=== PATIENT | female | born 1955 | race Caucasian/White ===

== ENCOUNTER → 2019-11-26 12:00 | Outpatient (CLI) | payer OTHER, SELFPAY ==
--- NOTE | ~2019-11-26 | XR_ITS ---
XR thoracic spine 3V DATE: 11/26/2019 12:31 INDICATION: Thoracic back pain TECHNIQUE: AP, lateral, swimmer views COMPARISON: 09/10/2016 thoracic spine FINDINGS: Diffuse osteopenia. There is minimal levoscoliosis of the thoracic spine. There is chronic minimal anterior wedging of a number of thoracic vertebra including T6 and T8, stabl e. No interval fracture or bone destruction of the thoracic spine. The thoracic pedicles are intact. No paraspinal soft tissue thickening. There is mild degenerative spurring of the thoracic spine. IMPRESSION: No recent fracture Mild degenerative spurring Minimal levoscoliosis Osteopenia Reviewed, dictated and finalized at location A.
== END ==
PROVIDERS: PCP Family Medicine; Visit Provider Family Medicine
DX: Z00.00 Encounter for general adult medical examination without abnormal findings (principal); M54.6 Pain in thoracic spine; M77.8 Other enthesopathies, not elsewhere classified; M41.84 Other forms of scoliosis, thoracic region; M85.88 Other specified disorders of bone density and structure, other site
CPT/HCPCS: 72072

== ENCOUNTER → 2019-12-06 12:17 | Outpatient (CLI) | payer OTHER, SELFPAY ==
--- NOTE | ~2019-12-06 | MR_ITS ---
EXAMINATION: MR thoracic spine wo con DATE: 12/06/2019 12:56 INDICATION: Dorsalgia, unspecified. TECHNIQUE: Magnetic resonance imaging (MRI) of the thoracic spine was performed without intravenous c ontrast. Sagittal localizer T1-weighted FSE of the cervical spine was obtained. Thoracic spine sequen lana included sagittal T2-weighted FSE, sagittal T1-weighted FSE, sagittal STIR FSE, and axial T2-weig hted FSE. COMPARISON: Thoracic spine radiographs 11/26/2019, CT abdomen and pelvis 08/11/2013 FINDINGS: There is 3 degrees dextrocurvature of thoracic spine. There is mild chronic anterior wedgin g of T6 vertebral body. In T12 vertebral body, there is an 11 mm lesion of decreased T1 and T2-weight ed signal intensity, likely focal sparing of fatty marrow replacement. Intervertebral disc heights ar e normal. The discs do not extend beyond the endplate margins. There is multilevel mild to moderate f acet joint osteoarthritis. On the right, there is mild neural foraminal stenosis at T8-T9, T9-T10, T1 0-T11, and T11-T12. On the left, there is mild neural foraminal stenosis at T3-T4, T8 and T9, T9-T10. The spinal cord signal intensity is normal. IMPRESSION: 1. Mild thoracic spondylosis. Reviewed, dictated and finalized at location A.
== END ==
PROVIDERS: PCP Family Medicine; Visit Provider Family Medicine
DX: M54.9 Dorsalgia, unspecified (principal); M47.24 Other spondylosis with radiculopathy, thoracic region
CPT/HCPCS: 72146

== ENCOUNTER 2020-04-11 10:40 | Outpatient (CLI) | payer OTHER, SELFPAY ==
--- NOTE | ~2020-04-11 | MM_ITS ---
EXAMINATION: MM screening leon BI w elsi HISTORY: Screening mammogram TECHNIQUE: Craniocaudal and mediolateral oblique 3-D tomosynthesis images were obtained and synthetic 2-D images were generated. CAD analysis was submitted and interpreted. COMPARISON: 02/26/2019 bilateral diagnostic digital mammogram 11/04/2017 diagnostic left digital mammogram 10/28/2017, 10/22/2016, 07/04/2015 bilateral digital screening mammogram examinations BREAST PARENCHYMAL COMPOSITION: There are scattered areas of fibroglandular density. FINDINGS: There is a biopsy marker on each side, associated with circumscribed masses, reportedly mayo ign. Occasional bilateral benign calcifications. There is no evidence of suspicious mass, calcificati on, or architectural distortion to suggest malignancy in either breast. There has been no suspicious interval change. IMPRESSION: 1. No mammographic evidence of malignancy. 2. Recommend routine screening mammography in one year. BI-RADS Category 2: Benign finding(s). Reviewed, dictated and finalized at location A. ENGINEER
== END 2020-04-11 10:41 | disposition home or self-care (01) ==
PROVIDERS: PCP Family Medicine; Visit Provider Family Medicine
DX: Z12.31 Encounter for screening mammogram for malignant neoplasm of breast (principal)
CPT/HCPCS: 77063; 77067

== ENCOUNTER → 2021-06-04 11:35 | Outpatient (CLI) | payer OTHER, SELFPAY ==
--- NOTE | ~2021-06-04 | XR_ITS ---
EXAMINATION: XR lumbar spine min 4V DATE: 06/04/2021 12:07 INDICATION: Low back pain. TECHNIQUE: 5 views of lumbar spine were obtained. COMPARISON: Thoracic spine radiographs 11/26/2019 FINDINGS: Bone alignment is normal. There is a compression fracture of T12 with 1/5 loss of height. T here is mildly decreased disc height at L3-L4. There are endplate osteophytes at all levels. There is multilevel facet joint osteoarthritis, severe in lower lumbar spine. IMPRESSION: 1. T12 compression fracture, most likely chronic, but new from 09/10/2016. 2. Mild lumbar spondylosis. Reviewed, dictated and finalized at location A. ITTEE MEMBER
== END ==
PROVIDERS: Visit Provider Family Medicine
DX: M48.54XA Collapsed vertebra, not elsewhere classified, thoracic region, initial encounter for fracture (principal); M47.816 Spondylosis without myelopathy or radiculopathy, lumbar region
CPT/HCPCS: 72110

== ENCOUNTER 2021-08-15 08:59 | Outpatient (CLI) | payer MEDICARE, SELFPAY ==
--- NOTE | ~2021-08-15 | MM_ITS ---
EXAMINATION: MM screening leon BI w elsi HISTORY: Screening TECHNIQUE: Craniocaudal and mediolateral oblique 3-D tomosynthesis images were obtained and synthetic 2-D images were generated. CAD analysis was submitted and interpreted. COMPARISON: Comparison to multiple prior studies sequentially, with oldest reviewed study dated 10/22. BREAST PARENCHYMAL COMPOSITION: Breast composed of scattered areas of fibroglandular density FINDINGS: Benign appearing calcifications and stable bilateral breast masses. There is no evidence of suspicious mass, calcification, or architectural distortion to suggest malignancy in either breast. There has been no suspicious interval change. IMPRESSION: 1. No mammographic evidence of malignancy. 2. Recommend routine screening mammography in one year. BI-RADS Category 2: Benign finding(s). Reviewed, dictated and finalized at location A.
== END 2021-08-15 09:00 | disposition home or self-care (01) ==
LOC: ANHIMG 09:03
PROVIDERS: PCP Family Medicine; Visit Provider Family Medicine
DX: Z12.31 Encounter for screening mammogram for malignant neoplasm of breast (principal)
CPT/HCPCS: 77063; 77067

== ENCOUNTER → 2021-09-14 02:15 | Outpatient (CLI) | payer MEDICARE, SELFPAY ==
[2021-09-14 15:55] LABS: SARS-CoV-2 RNA PCR Positive
== END ==
PROVIDERS: PCP Family Medicine; Visit Provider Family Medicine
DX: U07.1 COVID-19 (principal); R68.89 Other general symptoms and signs
CPT/HCPCS: C9803; U0003; U0005

== ENCOUNTER → 2021-10-01 14:28 | Outpatient (CLI) | payer MEDICARE, SELFPAY ==
--- NOTE | ~2021-10-01 | MR_ITS ---
EXAMINATION: MR brain/brain stem wo/w con DATE: 10/01/2021 15:06 INDICATION: Repeated falls. Unsteady gait. TECHNIQUE: Magnetic resonance imaging (MRI) of the brain and brainstem was performed without and with 15 mL MultiHance intravenous contrast. COMPARISON: None. FINDINGS: There is no intracranial hemorrhage, acute infarction, or abnormal intracranial mass lesion . There are scattered areas of nonspecific increased T2-weighted signal intensity in the cerebral whi te matter. There are old lacunar infarcts in the bilateral basal ganglia. The ventricles are normal i n size. There is mild mucosal thickening in the paranasal sinuses. The orbits are normal. The mastoi d air cells are normal. IMPRESSION: 1. 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 2. Mild nonspecific cerebral white matter disease, which likely represents chronic small vessel ische philly disease. Reviewed, dictated and finalized at location A. IMPRESSION: 1. 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 2. Mild nonspecific cerebral white matter disease, which likely represents storm door maker samuel small vessel ischemic disease.
[2021-10-01 14:49] LABS: Estimated Glomerular Filt Rate > 60
== END ==
PROVIDERS: PCP Family Medicine; Visit Provider Family Medicine
DX: M06.00 Rheumatoid arthritis without rheumatoid factor, unspecified site (principal); R29.6 Repeated falls; R27.0 Ataxia, unspecified; Z86.73 Personal history of transient ischemic attack (TIA), and cerebral infarction without residual deficits; R90.82 White matter disease, unspecified
CPT/HCPCS: 70553; A9577

== ENCOUNTER 2021-11-02 06:34 | Outpatient (CLI) | payer MEDICARE, SELFPAY ==
--- NOTE | 2021-11-02 11:32 | WPDNEUROLOGY ---
Neurology EEG Report General Information Date of Study: 11/02/21 TEST eeg DIAGNOSIS falls CONDITION OF RECORDING awake,drowsy and sleep EEG NUMBER [id number] CLINICAL HISTORY patient reports she has been falling the last couple of months. Does not believe she loses consciousness but does have confusion afterwards. EEG DESCRIPTION Basic resting occipital frequency consists of low-voltage 8 to 9 hertz per 2nd alpha admixed with low-voltage 15 to 18 hertz per 2nd beta. Bilateral symmetrical sleep activity seen during sleep. Hyperventilation not done. Photic stimulation produced normal drive. Excessive amount of intermittent theta activity seen particularly during drowsiness. Non paroxysmal. Nonfocal. Nonlateralizing. IMPRESSION abnormal record due to the presence of excessive amount of theta activity during wakefulness. Clinical correlation recommended. This abnormality as per Se is not diagnostic of focal structural lesion or seizure disorder but could be suggestive of underlying organic or metabolic encephalopathy clinical correlation recommended
== END 2021-11-02 06:35 | disposition home or self-care (01) ==
LOC: ANHNEURO 06:36
PROVIDERS: PCP Family Medicine; Visit Provider Internal Medicine
DX: T14.90XA Injury, unspecified, initial encounter (principal); R94.01 Abnormal electroencephalogram [EEG]
CPT/HCPCS: 95816

== ENCOUNTER → 2021-11-05 08:28 | Outpatient (CLI) | payer MEDICARE, SELFPAY ==
--- NOTE | ~2021-11-05 | MR_ITS ---
EXAMINATION: MR cervical spine wo con, MR thoracic spine wo con DATE: 11/05/2021 09:13 INDICATION: Myelopathy. Neck and mid back pain. TECHNIQUE: 1. Magnetic resonance imaging (MRI) of the cervical spine was performed without intravenous contrast. Sequences included sagittal T2-weighted FSE, sagittal T2-weighted FS FSE, sagittal T1-weighted FSE, axial MERGE and axial T2-weighted FSE. 2. MRI of the thoracic spine was performed without intravenous contrast. Sagittal localizer T1-weight ed FSE of the cervicothoracic spine was obtained. Sequences included sagittal T2-weighted FSE, sagitt al T2-weighted FS FSE, sagittal T1-weighted FSE and axial T1-weighted FSE. COMPARISON: Thoracic spine MR dated 11/29/2019 FINDINGS: Bone alignment is normal. Vertebral body heights are normal. Bone marrow signal intensity is normal . Intervertebral disc heights are normal. Annular fissures at C4-C5 through C6-C7. Cord signal intens ity is normal. There is some hypertrophic of the posterior longitudinal ligament at the level of C2 a nd C3. Cervical soft tissues are unremarkable. The following disc levels are specifically discussed: C2-C3: The disc does not extend beyond the endplate margin. Small central endplate osteophyte superio rly at C3 along the thickened posterior longitudinal ligament. There is mild bilateral uncovertebral joint osteoarthritis. There is mild bilateral facet joint osteoarthritis. There is no neural foramina l stenosis. There is mild central canal stenosis. C3-C4: Disc is mildly bulging. Additional thickening of the posterior longitudinal ligament. There is mild left uncovertebral joint osteoarthritis. There is mild left and moderate right facet joint oste oarthritis. There is no neural foraminal stenosis. There is mild central canal stenosis. C4-C5: Disc is bulging. There is mild bilateral uncovertebral joint osteoarthritis. There is moderate left and severe right facet joint osteoarthritis. There is mild bilateral neural foraminal stenosis. There is mild central canal stenosis. C5-C6: Disc is bulging. There is mild bilateral uncovertebral joint osteoarthritis. There is severe b ilateral facet joint osteoarthritis. There is mild left neural foraminal stenosis. There is mild cent ral canal stenosis. C6-C7: Disc is bulging. There is mild bilateral uncovertebral joint osteoarthritis. There is mild rig ht and moderate left facet joint osteoarthritis. There is mild left neural foraminal stenosis. There is mild central canal stenosis. C7-T1: The disc does not extend beyond the endplate margin. There is mild left uncovertebral joint os teoarthritis. There is mild bilateral facet joint osteoarthritis. There is no neural foraminal stenos is. There is no central canal stenosis. Thoracic spine: Alignment is normal. There is marrow edema underlying the irregular and depressed superior endplate o f T12 consistent with relatively recent burst fracture with one third anterior to central vertebral b dustin height loss. There is 2 mm retropulsion at the central superior aspect of the posterior wall. Unc hanged chronic mild anterior wedging with normal marrow signal at T6. Remaining thoracic vertebral marlys dy heights and marrow signal are normal. Mild disc height loss from T3-T4 through T9-T10 relatively s paring T6-T7 and T7-T8. Multilevel thoracic facet osteoarthritis, mild to moderate severity at the up per thoracic spine and moderate to severe at the lower thoracic spine. This contributes to mild neura l foraminal stenosis on the right at T7-T8 through T11-T12 and on the left at T3-T4, T8-T9 and T9-T10 . There is mild central canal stenosis at T11-T12 is altered from the retropulsion of the T12 burst f racture and mild associated bulging disc. This in the more cephalad thoracic spine do not extend beyo nd the endplate margins. Additional mild central canal stenosis at T8-T9 and T9-T10 resulting from hy per
== END ==
PROVIDERS: PCP Family Medicine; Visit Provider Internal Medicine
DX: G95.9 Disease of spinal cord, unspecified (principal); M47.812 Spondylosis without myelopathy or radiculopathy, cervical region; M47.814 Spondylosis without myelopathy or radiculopathy, thoracic region; S22.081A Stable burst fracture of T11-T12 vertebra, initial encounter for closed fracture
CPT/HCPCS: 72141; 72146

== ENCOUNTER 2022-04-12 11:52 | Outpatient (CLI) | payer MEDICARE, SELFPAY ==
--- NOTE | ~2022-04-12 | DEXA_ITS ---
Bone Density Report Name: ELODIA WALLER Age: 66 Sex: Female Ethnicity: White Date of : 1955 Indication: postmenopausal; screening for osteoporosis; height loss; prior fracture; hysterectomy; rheumatoid arthritis; Referring Provider: DAVID HOBBS Study: Bone densitometry was performed. Exam Date: April 12, 2022 Accession number: [id number] Bone Density: Region BMD T-score Z-score Classification AP Spine(L1-L4) 1.084 0.3 2.1 Normal Femoral Neck (Left) 0.795 -0.5 1.1 Normal Total Hip (Left) 0.851 -0.7 0.5 Normal Femoral Neck (Right) 0.740 -1.0 0.6 Normal Total Hip (Right) 0.865 -0.6 0.6 Normal Total Hip Mean 0.858 -0.7 0.6 Normal World Health Organization criteria for BMD impression classify patients as: Normal (T-score at or above -1.0), Osteopenia (T-score between -1.0 and -2.5), or Osteoporosis (T-score at or below -2.5). 10-year Fracture Risk: FRAX not reported because: All T-scores for Spine Total, Hip Total, Femoral Neck at or above -1.0 Prior hip or vertebral fracture Clinical Information Provided by Patient: Have had a previous hip or vertebral fracture Has had a low trauma fracture Has rheumatoid arthritis Has used the following medications: Vitamin D, Calcium Has the following medical conditions: Hysterectomy Patient maximum height was 66 Menopause Age: 51 Drinks caffeinated beverages Onset of menses at age 15 Number of children 2 Impression: The patient has normal bone mass. The patient has risk factors, including: previous fracture. Discussion: INCREASED RISK OF FRACTURE DUE TO HISTORY OF FRACTURE. The patient's previous fracture puts the patient at high risk of a future fracture. In untreated patients, the risk of osteoporotic fracture increases approximately two-fold for each 1.0 SD decrease in T-score. Low bone density is not the only risk factor for fracture; also consider factors such as patient's age, frailty or poor health, risk of falling, risk of injury, previous osteoporotic fracture, family history of osteoporosis, cigarette smoking, low body weight, etc. Not everyone with a low trauma fracture has osteoporosis; osteomalacia and other metabolic bone disorders should also be considered. Patients who have osteoporosis should be evaluated for specific diseases and conditions (secondary causes) that may cause or contribute to bone loss and fracture risk. National Osteoporosis Foundation (NOF) recommends pharmacologic intervention for patients with a prior hip or vertebral fracture regardless of BMD T-score. The patient should follow a healthful lifestyle (good nutrition with adequate calcium and vitamin D, and appropriate weight-bearing exercise). Follow-Up: Consider a repeat BMD and Vertebral Fracture Assessment (VFA) exam in 2 years or sooner if medica
== END 2022-04-12 11:53 | disposition home or self-care (01) ==
LOC: ANHIMG 11:53
PROVIDERS: PCP Family Medicine; Visit Provider Physician Assistant
DX: Z78.0 Asymptomatic menopausal state (principal)
CPT/HCPCS: 77080

== ENCOUNTER 2022-12-16 14:59 | Outpatient (CLI) | payer MEDICARE, SELFPAY ==
--- NOTE | ~2022-12-16 | MM_ITS ---
EXAMINATION: MM screening [facility] BI w elsi HISTORY: Screening mammogram TECHNIQUE: Craniocaudal and mediolateral oblique 3-D tomosynthesis images were obtained and synthetic 2-D images were generated. CAD analysis was submitted and interpreted. COMPARISON: 08/15/2021, 04/11/2020, 02/26/2019, 11/04/2017, 10/28/2017 BREAST PARENCHYMAL COMPOSITION: There are scattered areas of fibroglandular density. FINDINGS: There are stable bilateral breast masses, considered benign given the lack of interval montalvo ge. No suspicious mass, calcification, or architectural distortion are identified in either breast to suggest malignancy. There has been no suspicious interval change. IMPRESSION: 1. No mammographic evidence of malignancy. 2. Recommend routine screening mammography in one year. BI-RADS Category 2: Benign finding(s). Reviewed, dictated and finalized at location A.
== END 2022-12-16 15:00 | disposition home or self-care (01) ==
LOC: ANHIMG 15:02
PROVIDERS: PCP Family Medicine; Visit Provider Family Medicine
DX: Z12.31 Encounter for screening mammogram for malignant neoplasm of breast (principal)
CPT/HCPCS: 77063; 77067

== ENCOUNTER 2024-06-17 14:08 | Outpatient (RCR) | payer MEDICARE, SELFPAY ==
--- NOTE | 2024-06-09 08:30 | PCPTNOTE ---
This treatment is being continued from visit number [id number] Please see documentation on both accounts to view progress. Completed interventions, outcomes, and problems have been marked as Inactive to facilitate the copying of the Care plan routine for recurring accounts.
--- NOTE | 2024-06-17 16:01 | OPREHPOC ---
Outpatient Therapy Plan of Care This is a Multidisciplinary Plan of Care that may contain components documented by all disciplines (PT, OT, and ST.) PT Problem 1 PT Problem #1 Knowledge Deficit PT Goal 1 Goal / Goal Update Hyde with HEP Target Visit 4 Progress Met PT Goal 2 Goal / Goal Update Improve LEFS score by 25% + for improved gross function Target Visit 8 Progress Met PT Problem 2 PT Problem #2 Impaired Strength PT Goal 1 Goal / Goal Update Improve left hip abduction strength to 4/5 to improve lateral stability with gait and transfers -Still showing weakness but progressing Target Visit 22 Progress Met PT Goal 2 Goal / Goal Update Improve left hip flexion strength to 4+/5 to improve foot clearance with gait and ADLs -Improvement noted Target Visit 10 Progress Met PT Problem 3 PT Problem #3 Impaired Range of Motion PT Goal 1 Goal / Goal Update Improve arron hip abduction to 40 degrees to reduce capsular restriction with gait and lateral movement- continued restriction noted. Having trouble with cross over Target Visit 22 Progress Met PT Problem 4 PT Problem #4 Impaired Gait PT Goal 1 Goal / Goal Update Patient will improve 2 minute walk test to 300' for improved gait speed and reduced fall risk Target Visit 10 Progress Met
--- NOTE | 2024-06-17 16:01 | PTOPDC ---
Assessment and note entered by Conrad Villarreal, PT Evaluation Information Assessment Status Discharge Diagnosis ORIF L hip ICD-10 Condition Codes (PT) Pain in left hip M25.552 Onset December 2023 Fracture and Surgery Subjective Information Patient reports progress with only some lateral hip pain remaining at this time. Overall she notes no increased pain anywhere near hip joint and all is on lateral hip. She has been doing a lot more walking and is feeling comfortable with her stride and pace. Will continue with HEP post discharge. Reported Pain Level Pain Score 2: Self Report Assessment PT Clinical Summary Patient met all goals for therapy and is suitable for discharge to [facility] at this time. Able to reflect and recall HEP with no concerns at this time. Plan of Care PT Services Indicated Yes
== END 2024-06-18 09:33 | disposition home or self-care (01) ==
LOC: ANHPT 14:08
PROVIDERS: PCP Family Medicine
DX: Z47.1 Aftercare following joint replacement surgery (principal); Z98.890 Other specified postprocedural states; Z87.81 Personal history of (healed) traumatic fracture; Z96.642 Presence of left artificial hip joint
CPT/HCPCS: 97110; 97116; 97530

== ENCOUNTER 2024-08-12 08:06 | Outpatient (CLI) | payer MEDICARE, SELFPAY ==
--- NOTE | ~2024-08-12 | DEXA_ITS ---
Bone Density Report Name: ELODIA WALLER Age: 68 Sex: Female Ethnicity: White Date of : 1955 Indication: postmenopausal; screening for osteoporosis; height loss; prior fracture; hysterectomy; rheumatoid arthritis; Referring Provider: EILEEN ZHOU Study: Bone densitometry was performed. Exam Date: August 12, 2024 Accession number: [id number] Bone Density: Region BMD T-score Z-score Classification AP Spine(L1-L4) 1.046 0.0 2.0 Normal Femoral Neck (Right) 0.730 -1.1 0.6 Osteopenia Total Hip (Right) 0.796 -1.2 0.2 Osteopenia World Health Organization criteria for BMD impression classify patients as: Normal (T-score at or above -1.0), Osteopenia (T-score between -1.0 and -2.5), or Osteoporosis (T-score at or below -2.5). 10-year Fracture Risk: FRAX not reported because: Prior hip or vertebral fracture Previous Exams: Region Exam Age BMD T-score BMD Change BMD Change Date g/cm2 vs Baseline vs Previous AP Spine (L1-L4) 08/12/2024 68 1.046 0.0 -0.199 (-16.0% -0.038 (-3.5%) 04/12/2022 66 1.084 0.3 -0.162 (-13.0% -0.162 (-13.0% 10/22/2016 61 1.245 1.8 Total Hip(Right) 08/12/2024 68 0.796 -1.2 -0.256 (-24.4% -0.069 (-8.0%) 04/12/2022 66 0.865 -0.6 -0.187 (-17.8% -0.187 (-17.8% 10/22/2016 61 1.052 0.9 *Denotes significance at 95% confidence level, LSC for AP Spine = 0.022 g/cm2, LSC for Total Hip = 0.027 g/cm2 # Denotes dissimilar scan types or analysis methods Clinical Information Provided by Patient: Have had a previous hip or vertebral fracture Has had a low trauma fracture Has rheumatoid arthritis Has used the following medications: Vitamin D, Calcium Has the following medical conditions: Hysterectomy Patient maximum height was 66 Menopause Age: 51 Does not regularly consume dairy products Onset of menses at age 15 Number of children 2 Impression: The patient has low bone mass, based on the Right Total Hip T-score. The patient has risk factors, including: previous fracture. No significant bone loss was observed. Discussion: INCREASED RISK OF FRACTURE DUE TO HISTORY OF FRACTURE. The patient's previous fracture puts the patient at high risk of a future fracture. In untreated patients, the risk of osteoporotic fracture increases approximately two-fold for each 1.0 SD decrease in T-score. Low bone density is not the only risk factor for fracture; also consider factors such as patient's age, frailty or poor health, risk of falling, risk of injury, previous osteoporotic fracture, family history of osteoporosis, cigarette smoking, low body weight, etc. Not everyone with a low trauma fracture has osteoporosis; osteomalacia and other metabolic bone disorders should also be considered. Patients who have osteoporosis should be evaluated for specific diseases and conditions (secondary causes) that may cause or contribute to bone loss and fracture risk. National Osteoporosis Foundation (NOF) recommends pharmacologic intervention for patients with a prior hip or vertebral fracture regardless of BMD T-score. The patient should follow a healthful lifestyle (good nutrition with adequate calcium and vitamin D, and appropriate weight-bearing exercise). Follow-Up: Consider a repeat BMD and Vertebral Fracture Assessment (VFA) exam in 2 years or sooner if medically necessary, to reassess this patient's status. Reported by: ARMAND on 08/12/2024 8:47:00 AM. Reviewed, dictated and finalized at location A. MARIIA
--- NOTE | ~2024-08-12 | MM_ITS ---
EXAMINATION: MM screening leon BI w elsi HISTORY: Screening TECHNIQUE: Craniocaudal and mediolateral oblique 3-D tomosynthesis images were obtained and synthetic 2-D images were generated. CAD analysis was submitted and interpreted. COMPARISON: Comparison to multiple prior studies sequentially, with oldest reviewed study dated 11/04. BREAST PARENCHYMAL COMPOSITION: Not dense: There are scattered areas of fibroglandular density. FINDINGS: There is a mass in the lower outer quadrant of the left breast, posterior third. The right breast is stable without evidence for malignancy. IMPRESSION: 1. Left breast mass, lower outer quadrant, posterior third, measuring approximately 1 cm. 2. Additional mammographic views and possible breast ultrasound are recommended. BI-RADS Category 0: Incomplete: Needs additional imaging evaluation. Reviewed, dictated and finalized at location A. IMPRESSION: 1. Left breast mass, lower outer quadrant, posterior third, measuring approxima tely 1 cm. 2. Additional mammographic views and possible breast ultrasound are recommended . BI-RADS Category 0: Incomplete: Needs additional imaging evaluation.
--- OUTSIDE RECORDS SUMMARY | 2024-08-12 08:14 | XMS_ITS | Encounter Summary ---
Author Organization [facility] Address [address] [place] [id number] Care Team Providers Care Prop Setter Name Role Phone Cooper Suazo MD Primary Care Provider [phone] Matias Betancur MD Unavailable Encounter Details Date Type Department Care Team (Late st Contact Info) Description 01/19/2024 Invoca Message Enc [facility] Orthopedic [facility] Sports Medicine - [place] [address] [employer], [facility] Provider apt Social History Tobacco Use Types Packs/Day Years Used Date Smoking Tobacco: Never Smokeless Tobacco: Never Alcohol Use Standard Drinks/Week Comments Never 0 (1 standard drink = 0.6 oz pur e alcohol) very rare [facility] Utilities Answer Date Recorded In the past 12 months has health system [employer], gas, oil, or water [employer] threatened to shut off services in your home? No 12/28/2023 Humiliation, Afraid, Rape, and Kick questionnair e Answer Date Recorded Within the last year, have y ou been afraid of your partner or ex-partner? No 12/28/2023 Within the last year, have y ou been humiliated or emotionally abused in other ways by your partner or ex-partner? No Within the last year, have y ou been kicked, hit, slapped, or otherwise physically hurt by your partner or ex-partner? No 12/28/2023 Within the last year, have y ou been raped or forced to have any kind of sexual activity by your partner or ex-partner? No 12/28/2023 Overall Financial Resource Strain (CARDIA) Answe r Date Recorded How hard is it for you to pa y for the very basics like food, housing, medical care, and heating? Not hard at all 12/28/2023 PHQ-2 Answer Date Recorded Patient Health Questionnaire-2 Score 0 12/22/2023 Hunger Vital Sign Answer Date Recorded Within the past 12 months, y ou worried that your food would run out before you got the money to buy more. Never true 12/28/19 24 Within the past 12 months, t he food you bought just didn't last and you didn't have money to get more. Never true 12/28/2023 PRAPARE - Transportation Answer Date Re corded In the past 12 months, has l ack of transportation kept you from medical appointments or from getting medications? No 12/10 In the past 12 months, has l ack of transportation kept you from meetings, work, or from getting things needed for daily living? No 12/28/2023 Housing Stability Vital Sign Answer Chong e Recorded In the last 12 months, was t here a time when you were not able to pay the mortgage or rent on time? No 12/28/2023 In the past 12 months, how m any times have you moved where you were living? 1 12/28/2023 At any time in the past 12 m [facility], were you homeless or living in a detention (including now)? No 12/28/2023 Comments No Sex and Gender Information Value Date Recorded Sex Assigned at Not on file Legal Sex Female 10:06 AM CDT Gender Identity Not on file Sexual Orientation Not on file documented as of this encounter Functional Status * Are you deaf or do you have serious difficulty hearing Answer Date of Assessment Author Status No 12/28/2023 12:50 AM SHANNONT Jalyn Marmolejo RN Active * Are you blind or do you have serious difficulty seeing, even when wearing glasses? Answer Date of Assessment Author Status No 12/28/2023 12:50 AM SHANNONT Jalyn Marmolejo RN Active * Do you have serious difficulty walking or climbing stairs? Answer Date of Assessment Author Status Yes 12/28/2023 12:50 AM Jalyn Vega RN Active * Do you have difficulty dressing or bathing? Answer Date of Assessment Author Status Yes 12/28/2023 12:50 AM CDT Jalyn Marmolejo RN Active * Because of a physical, mental, or emotional condition, do you have difficulty doing errands alone such as visiting a doctor's office or shopping? Answer Date of Assessment Author Status No 12/28/2023 12:50 AM CDT Jalyn Marmolejo RN Active documented as of this encounter Mental Status * Because of a physical, mental, or emotional condition, do you have serious difficulty concentrating, remembering, or making decisions? Answer Entry Date Author Status No 12/28/2023 12:50 AM CDT Jalyn Marmolejo RN Active documented in this encounter Plan of Treatment Upcoming Encounters Date Type Department Care Team (Late st Contact Info) Description 08/12/2024 12:30 PM [facility] [address] [place] [address] Herman Barajas MD [address] [place] [address] 08/12/2024 1:15 PM CDT [facility] [address] [place] [address] Herman Barajas MD [address] [place] [address] 08/24/2024 2:15 PM CDT Appointment [facility] [place] [address] Herman Barajas MD [address] [place] [address] 08/24/2024 3:15 PM CDT Appointment [place] [address] Herman Barajas MD [address] [place] [address] 11/16/2024 10:30 AM CDT Office Visit [facility], [place] [address] [place] [address] Dwayne Luis MD [facility]. [address] [place] [address] 12/14/2024 2:40 PM CDT Office Visit [facility] - [facility] [address] [facility], [address] [place] [id number] Herman Barajas MD [address] [place] [address] documented as of this encounter Goals Goal Patient Goal Type Associated Problems Recent Progress Patient-Stated? Author Family - family caregiver with be involved in care transitions and discharge planning Lifestyle No Orville Lares, RN documented as of this encounter Visit Diagnoses Not on filedocumented in this encounter Care Teams Prop Setter Relationship Specialty Start Date End Date Cooper Suazo MD PCP - General FAMILY PRACTICE 10/17/21 Matias Betancur MD [address] [place] [address] Surgeon NEUROLOGICAL SURGERY 06/20/22 documented as of this encounter
--- OUTSIDE RECORDS SUMMARY | 2024-08-12 08:14 | XMS_ITS | Encounter Summary ---
Author Organization [facility] Address [facility] [place] [address] Care Team Providers Care Bolt Sawyer Name Role Phone Cooper Suazo MD Primary Care Provider [phone]- [phone] Matias Betancur MD Unavailable [phone] Encounter Details Date Type Department Care Team (Late st Contact Info) Description 07/15/2022 Equivalent DATAt Message Enc [facility] Multispecialty Care - [facility] 3 [facility], [address] [place] [id number] Hilary Smith APRN 3 [facility] [address] [place] [address] medications Social History Tobacco Use Types Packs/Day Years Used Date Smoking Tobacco: Never Smokeless Tobacco: Never Alcohol Use Standard Drinks/Week Comments Not Currently 0 (1 standard drink = 0.6 oz pur e alcohol) very rare PHQ-2 Answer Date Recorded PHQ-2 Score - If the patient scores above 3, please move on to questions 3-9 0 03/28/2022 Comments No Sex and Gender Information Value Date Recorded Sex Assigned at Not on file Legal Sex Female 10:06 AM CDT Gender Identity Not on file Sexual Orientation Not on file COVID-19 Exposure Response Date Recorded In the last 10 days, have yo u been in contact with someone who was confirmed or suspected to have Coronavirus/COVID-19? 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 documented as of this encounter Plan of Treatment Upcoming Encounters Date Type Department Care Team (Late st Contact Info) Description 08/12/2024 12:30 PM CDT Appointment [facility] [address] [place] [address] Herman Barajas MD 3 [facility] [place] [address] 08/12/2024 1:15 PM CDT Appointment [facility] [address] [place] [address] Herman Barajas MD 3 [facility] [place] [address] 08/24/2024 2:15 PM CDT Appointment [facility] [place] [place] [address] Herman Barajas MD 3 [facility] [place] [address] 08/24/2024 3:15 PM CDT Appointment [facility] ONE [facility] [place] [address] Herman Barajas MD 3 [place] [address] 11/16/2024 10:30 AM CDT [facility] [address], [facility] [address] [place] [address] Dwayne Luis MD [address] [place] [address] 12/14/2024 2:40 PM CDT Office Visit [facility] Multispecialty Care - [facility] 3 [facility], [address] [place] [address] Herman Barajas MD 3 [place] [address] documented as of this encounter Visit Diagnoses Not on filedocumented in this encounter Care Teams Bolt Sawyer Relationship Specialty Start Date End Date Cooper Suazo MD PCP - General FAMILY PRACTICE 10/17/21 Matias Betancur MD 3 [place] [address] Surgeon NEUROLOGICAL SURGERY 06/20/22 documented as of this encounter
--- OUTSIDE RECORDS SUMMARY | 2024-08-12 08:14 | XMS_ITS ---
Author Organization [facility] samuel Address [address] [place] [address] Care Team Providers Care Cotton Bag Clipper Name Role Phone Gabriele HUIZAR, Cooper Primary Care Provider Annabel Rodriguez Unavailable [phone] REASON FOR VISIT modifier Encounters Encounter Location Date Provider Diagnosis [facility] [address] [place] [address] 03/22/2024 Annabel Soto Plan Of Treatment Next Appt Details Provider Name:Annabel Soto, 09/14 11:45:00 AM, [address], [place], [address], Progress Notes * SRIDHAR MitchellJesseB:1955 (68 yo F)Acc No.[id number]:03/22/2024 Patient: Liudmila COLEMAN :1955 A ge:68 Y S ex:Female Address:[address] [place], [address] * true * Date: Generated for Printi ng/Faxing/eTransmitting on: 0 08/12/2024 08:14 AM CDT
--- OUTSIDE RECORDS SUMMARY | 2024-08-12 08:14 | XMS_ITS | Encounter Summary ---
Author Organization [facility] Address [facility] [place] [address] Care Team Providers Care Fur Blowing Machine Operator Name Role Phone Cooper Suazo MD Primary Care Provider [phone] Matias Betancur MD Unavailable [phone] Encounter Details Date Type Department Care Team (Late Contact Info) Description 02/05/2022 Hospital Orders Only [facility] [place] [address] Daren See MD,PHD Social History Tobacco Use Types Packs/Day Years Used Date Smoking Tobacco: Never Smokeless Tobacco: Never Alcohol Use Standard Drinks/Week Comments Not Currently 0 (1 standard drink = 0.6 oz pur e alcohol) occasionally Comments Unknown Sex and Gender Information Value Date Recorded Sex Assigned at Not on file Legal Sex Female 10:06 AM CDT Gender Identity Not on file Sexual Orientation Not on file COVID-19 Exposure Response Date Recorded In the last 10 days, have yo u been in contact with someone who was confirmed or suspected to have Coronavirus/COVID-19? No / Unsure 02/05/2022 9:36 AM CDT documented as of this encounter Plan of Treatment Upcoming Encounters Date Type Department Care Team (Late st Contact Info) Description 08/12/2024 12:30 PM CDT Appointment [facility] [address] [place], [place] [id number] Herman Barajas MD 3 [place] [address] 08/12/2024 1:15 PM CDT Appointment [facility] [address] [place] [address] Herman Barajas MD [address] [facility] [place] [address] 08/24/2024 2:15 PM CDT Appointment [facility] [place] [address] Herman Barajas MD 3 [facility] [address] 08/24/2024 3:15 PM CDT Appointment [facility] [place] [address] Herman Barajas MD 3 [facility] [place] [address] 11/16/2024 10:30 AM CDT Office Visit [facility] [address] [facility] [address], [address] [place] [address] Dwayne Luis MD Three [facility] [address] [place] [address] 12/14/2024 2:40 PM CDT Office Visit [facility] Medical Group Multispecialty Care - [place] [address], [address] [place] [address] Herman Barajas MD 3 [place] [address] documented as of this encounter Visit Diagnoses Not on filedocumented in this encounter Care Teams Fur Blowing Machine Operator Relationship Specialty Start Date End Date Cooper Suazo MD PCP - General FAMILY PRACTICE 10/17/21 Matias Betancur MD 3 [place] [address] Surgeon NEUROLOGICAL SURGERY 06/20/22 documented as of this encounter
--- OUTSIDE RECORDS SUMMARY | 2024-08-12 08:14 | XMS_ITS | Encounter Summary ---
Author Organization [facility] Address [address] [place] [address] Care Team Providers Care Painter Helper Name Role Phone Cooper Suazo MD Primary Care Provider [phone] Matias Betancur MD Unavailable [phone] Encounter Details Date Type Department Care Team (Late Contact Info) Description 04/05/2022 Abstract [facility], [address] [address] Derik Paul MA Social History Tobacco Use Types Packs/Day Years Used Date Smoking Tobacco: Never Smokeless Tobacco: Never Alcohol Use Standard Drinks/Week Comments Yes 0 (1 standard drink = 0.6 oz pur e alcohol) occasionally PHQ-2 Answer Date Recorded PHQ-2 Score - [...] suspected to have Coronavirus/COVID-19? 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 [address] [place] [address] Herman Barajas MD 3 [facility] [place] [address] 08/24/2024 2:15 PM CDT Appointment [facility] [place] [address] Herman Barajas MD 3 [facility] [place] [address] 08/24/2024 3:15 PM CDT Appointment [facility] [place] [address] Herman Barajas MD 3 [place] [address] 11/16/2024 10:30 AM CDT Office Visit [facility] [address] [facility] [address], [address] [place] [address] Dwayne Luis MD [address] [facility] [address] [place] [address] 12/14/2024 2:40 PM CDT Office Visit [facility] Medical Group Multispecialty Care - [place] [address], [address] [place] [address] Herman Barajas MD 3 [place] [address] documented as of this encounter Procedures Procedure Name Priority Date/Time Associated Diagnosis Comments BUN (OUTSIDE LAB) Routine 02/12/2022 HEMATOCRIT Routine 02/12/2022 CREATININE Routine 02/12/2022 documented in this encounter Results * HEMATOCRIT (02/12/2022) HCT 38.6 02/12/2022 us Default History Genericprovider LABORATORY Final Result * CREATININE (02/12/2022) CREATININE S/P/B 0.94 0.5 - 1.0 EGFR NON-AFR. AMER. 67 <=90 02/12/2022 us Default History Genericprovider LABORATORY Final Result * BUN (OUTSIDE LAB) (02/12/2022) BUN 19 02/12/2022 us Default History Genericprovider LAB-OUTSIDE/ABST RACTED Final Result documented in this encounter Visit Diagnoses Not on filedocumented in this encounter Care Teams Painter Helper Relationship Specialty Start Date End Date Cooper Suazo MD PCP - General FAMILY PRACTICE 10/17/21 Matias Betancur MD 3 [place] [address] Surgeon NEUROLOGICAL SURGERY 06/20/22 documented as of this encounter
--- OUTSIDE RECORDS SUMMARY | 2024-08-12 08:14 | XMS_ITS | Encounter Summary ---
Author Organization [facility] Address [address] [place] [address] Care Team Providers Care Workshop Manager Name Role Phone Cooper Suazo MD Primary Care Provider [phone]- [phone] Matias Betancur MD Unavailable [phone] Encounter Details Date Type Department Care Team (Late Contact Info) Description 08/21/2023 MyChart Message [facility] Center [address] [place], [place] [id number] Chrissy Sultana MD Three [facility] [address] [place] [address] Appt on August 24 Social History Tobacco Use Types Packs/Day Years Used Date Smoking Tobacco: Never Smokeless Tobacco: Never Alcohol Use Standard Drinks/Week Comments Never 0 (1 standard drink = 0.6 oz pur e alcohol) very rare PHQ-2 Answer Date Recorded Patient Health Questionnaire-2 Score 0 08/06/2022 Comments No Sex and Gender Information Value Date Recorded Sex Assigned at Not on file Legal Sex Female 10:06 AM CDT Gender Identity Not on file Sexual Orientation Not on file documented as of this encounter Plan of Treatment Upcoming Encounters Date Type Department Care Team (Late Contact Info) Description 08/12/2024 12:30 PM CDT Appointment [facility] MRI [address] [place] [address] Herman Barajas MD [address] [place] [address] 08/12/2024 1:[address] [facility] [address] [place] [address] Herman Barajas MD [address] [facility] [place] [address] 08/24/2024 2:15 PM CDT Appointment [place] [place] [address] Herman Barajas MD 3 [place] [address] 08/24/2024 3:15 PM CDT Appointment [place] [place] [address] Herman Barajas MD 3 [place] [address] 11/16/2024 10:30 AM CDT Office Visit [facility] [address] [facility] [address], [facility] [address] [place] [address] Dwayne Luis MD Three [address] [facility] [address] [place] [address] 12/14/2024 2:40 PM CDT Office [facility] Medical Group Multispecialty Care - [facility] [address], [address] [place] [phone] Herman Barajas MD 3 [place] [address] documented as of this encounter Visit Diagnoses Not on filedocumented in this encounter Care Teams Workshop Manager Relationship Specialty Start Date End Date Cooper Suazo MD PCP - General FAMILY PRACTICE 10/17/21 Matias Betancur MD 3 [place] [address] Surgeon NEUROLOGICAL SURGERY 06/20/22 documented as of this encounter
--- OUTSIDE RECORDS SUMMARY | 2024-08-12 08:14 | XMS_ITS | Encounter Summary ---
Author Organization [facility] Address [address] [place] [address] Care Team Providers Care File Machine Operator Name Role Phone Cooper Suazo MD Primary Care Provider [phone] Matias Betancur MD Unavailable [phone] Encounter Details Date Type Department Care Team (Late st Contact Info) Description 01/20/2024 [facility] Message Enc [facility] Medical Group Orthopedic & Sports Medicine [address] [address] [email or web address], [facility] Provider questions Social History Tobacco Use Types Packs/Day Years Used Date Smoking Tobacco: Never Smokeless Tobacco: Never Alcohol Use Standard Drinks/Week Comments Never 0 (1 standard drink = 0.6 oz pur e alcohol) very rare [facility] Utilities Answer Date Recorded In the past 12 months has [facility] [employer], gas, oil, or water [employer] threatened to shut off services in your [...] any time in the past 12 m [facility], were you homeless or living in a fci (including now)? No 12/28/2023 Comments No Sex [...] Info) Description 08/12/2024 12:30 PM CDT [facility] [address] [place] [address] Herman Barajas MD 3 [place] [address] 08/12/2024 1:15 PM CDT [facility]ment [facility] [address] [place] [address] Herman Barajas MD 3 [place] [address] 08/24/2024 2:15 PM CDT Appointment [facility] [place] [address] Herman Barajas MD 3 [place] [address] 08/24/2024 3:15 PM CDT Appointment [place] [address] Herman Barajas MD 3 [place] [address] 11/16/2024 10:30 AM CDT Office Visit [facility] THREE [facility], [address] [place] [address] Dwayne Luis MD Three [facility]. [address] [place] [address] 12/14/2024 2:40 PM CDT Office Visit [facility] Medical Group Multispecialty Care - [facility] 3 [facility], [address] [place] [address] Herman Barajas MD 3 [place] [address] documented as of this encounter Goals Goal Patient Goal Type Associated Problems Recent Progress Patient-Stated? Author Family - family caregiver with be involved in care transitions and discharge planning Lifestyle No Orville Lares, RN documented as of this encounter Visit Diagnoses Not on filedocumented in this encounter Care Teams File Machine Operator Relationship Specialty Start Date End Date Cooper Suazo MD PCP - General FAMILY PRACTICE 10/17/21 Matias Betancur MD 3 [place] [address] Surgeon NEUROLOGICAL SURGERY 06/20/22 documented as of this encounter
--- OUTSIDE RECORDS SUMMARY | 2024-08-12 08:14 | XMS_ITS ---
Author Organization [facility] samuel Address [address] [place] [address] Care Team Providers Care Residential Concierge Name Role Phone Gabriele HUIZAR, Cooper Primary Care Provider Zandra SandraClaug Unavailable [phone] Allergies Allergen (clinical drug ingredient) Drug/Non Drug Allergy documented on EMR Reaction Allergy Type Onset Date Status ciprofloxacin Cipro Unknown Drug Allergy 07/05/2019 Ac tive erythromycin Erythromycin Unknown Drug Allergy 07/05/2019 Active REASON FOR VISIT yd/3 month follow up/flc, RA Medications Medication SIG (Take, Route, Frequency, Duration) Notes Start Date End Date Status Gabapentin 300 MG 1 capsule Orally 4 times a day for 90 days Active Hydroxychloroquine Sulfate 200 MG as directed Orally twice daily Active Ferrous Sulfate 324 (65 Fe) MG Oral for 90 Days Active JOSÉ C take 1 daily *Reorder from [facility] for eRx and Interaction Alerts* Active traZODone HCl 100 MG take 1 tablet (100 mg) by oral route once daily at bedtime Oral 1 Active Aspirin 81 81 MG take 1 tablet (81 mg) by oral route once daily Oral 1 Active Calcium + Vitamin D3 600-5 MG-MCG take 1 by oral route once Oral 1 Active FLUoxetine HCl 20 MG take 1 capsule (20 mg) by oral route once daily Oral 1 Active Lisinopril 10 MG take 1 tablet (10 mg) by oral route once daily Oral 1 Active cetirizine take 1 by oral route once oral 1 *Reorder from [facility] for eRx and Interaction Alerts* Active Metamucil 4 in 1 Fiber 55.6 % take 1 by oral route once Oral 1 Active Atorvastatin Calcium 20 MG take 1 tablet (20 mg) by oral route once daily Oral 1 Active metFORMIN HCl 500 MG take 1 tablet at bedtime Oral Active Alive Once Daily Women 50 Plus 800-100 mcg take 1 tablet by oral route once oral 1 *Reorder from [facility] for eRx and Interaction Alerts* Active Vital Signs Height 66 in 06/15/2024 Height-cm 167.64 cm 06/15/2024 Weight 158.8 lbs 06/15/2024 Weight-kg 72.02 kg 06/15/2024 BMI 25.63 kg/m2 06/15/2024 Temperature 98.0 degrees Fahrenheit 06/15/19 25 Oximetry 97 % 06/15/2024 Heart Rate 66 /min 06/15/2024 Blood pressure systolic 112 mm Hg 06/15/19 25 Blood pressure diastolic 70 mm Hg 025 Encounters Encounter Location Date Provider Diagnosis [facility] [address] [place] [address] 06/15/2024 Annabel Sandra Rheumatoid arthritis without rheumatoid factor, multiple sites M06.09 ; History of skin cancer Z85.828 ; High risk medication use Z79.899 ; Lumbar back pain M54.50 ; Pain, joint, knee, right M25.561 and Pain, joint, knee, left M25.562 Assessments Encounter Date Diagnosis (ICD Code) Assessment Notes Treatment Notes Treatment Clinical Notes Section Notes 06/15/2024 Rheumatoid arthritis without rheumatoid factor, multiple sites (ICD-10 - M06.09) stable for the most part, continue plaquenil and gabapentin, return in 3-4 months 06/15/2024 History of skin cancer (ICD-10 - Z85.828) stable for the most part, continue plaquenil and gabapentin, return in 3-4 months 06/15/2024 High risk medication use (ICD-10 - Z79.899) stable for the most part, continue plaquenil and gabapentin, return in 3-4 months 06/15/2024 Lumbar back pain (ICD-10 - M54.50) stable for the most part, continue plaquenil and gabapentin, return in 3-4 months 06/15/2024 Pain, joint, knee, right (ICD-10 - M25.561) stable for the most part, continue plaquenil and gabapentin, return in 3-4 months 06/15/2024 Pain, joint, knee, left (ICD-10 - M25.562) stable for the most part, continue plaquenil and gabapentin, return in 3-4 months Plan Of Treatment Next Appt Details Follow Up: 3 Months, Reason: Provider Name:Annabel Charles, 09/14 11:45:00 AM, [address], [facility] [address], [place], [address], Progress Notes * Mitchell WALLERaDOB:1955 (68 yo F)Acc No.[id number]:06/15/2024 Progress Notes Patient: Liudmila COLEMAN Provider: Feli SANDRA MD :1955 A ge:68 Y S ex:Female Date:06/15/2024 Address:[address] [place] [address] Pcp:Cooper Suazo MD Subjective: * Chief Complaints: * Y d/3 month follow up/flcRA * HPI: G eneral Follow up: seronegative, steroid responsive joint pain, +dry eyes and dry mouth, on plaquenil 400mg/day, on gabapentin, meds helping, neds refills, shoulders and back bother her a little, am stiffness: 5 minutes stopped Mobic due to decreased GFR fell had fractured left hip, had surgery in 12/2023 had kyphoplasty for vertebral fracture in 06/2022, started on norflex, had PT, had injections by pain specialist 05/2021, fell and had vertebral fracture, fell due to lacunar stroke 07/2021, serologies (-), X-rays of knees: mild OA 03/2020, serologies (-) eye exam: 10/2023 hx of squamous cell skin cancer. * ROS: G eneral / Constitutional: Patient denies f fabi, chills. P atient complains of?fatigue. M usculoskeletal: Patient complains of s ee HPI. S kin: Patient denies r mandie. * Medical History: * Surgical History: A ugmentation of both breasts with reduction of both areolae; [id number] cuff repair; [id number]; [id number] hip fracture and surgery * Hospitalization/Major Diagno stic Procedure: * Family History: M igrated Family History: Diabetes , Heart Disease , Hypertension , Rheumatoid Arthritis .? * Social History: M igrated Social History: M igrated Social History: :: 2 Sons , Marital Status :: , Substance Use :: rare alcohol usage , Substance Use :: Tobacco :: Never. * Medications: T akingmetFORMIN HCl 500 MG Tablet take 1 tablet at bedtime Oral Metamucil 4 in 1 Fiber 55.6 % Powder take 1 by oral route once Oral 1 Atorvastatin Calcium 20 MG Tablet take 1 tablet (20 mg) by oral route once daily Oral 1 Alive Once Daily Women 50 Plus 800-100 mcg tablet take 1 tablet by oral route once oral 1 , Notes to Pharmacist: *Reorder from [facility] for eRx and Interaction Alerts*cetirizine take 1 by oral route once oral 1 , Notes to Pharmacist: *Reorder from [facility] for eRx and Interaction Alerts*FLUoxetine HCl 20 MG Capsule take 1 capsule (20 mg) by oral route once daily Oral 1 Lisinopril 10 MG Tablet take 1 tablet (10 mg) by oral route once daily Oral 1 Aspirin 81 81 MG Tablet Delayed Release take 1 tablet (81 mg) by oral route once daily Oral 1 Calcium + Vitamin D3 600-5 MG-MCG Tablet take 1 by oral route once Oral 1 JOSÉ C take 1 daily , Notes to Pharmacist: *Reorder from [facility] for eRx and Interaction Alerts*traZODone HCl 100 MG Tablet take 1 tablet (100 mg) by oral route once daily at bedtime Oral 1 Hydroxychloroquine Sulfate 200 MG Tablet as directed Orally twice daily Ferrous Sulfate 324 (65 Fe) MG Tablet Delayed Release Oral Gabapentin 300 MG Capsule 1 capsule Orally 4 times a day Medication List reviewed and reconciled with the patientTaking metFORMIN HCl 500 MG Tablet take 1 tablet at bedtime Oral Taking Metamucil 4 in 1 Fiber 55.6 % Powder take 1 by oral route once Oral 1 Taking Atorvastatin Calcium 20 MG Tablet take 1 tablet (20 mg) by oral route once daily Oral 1 Taking Alive Once Daily Women 50 Plus 800-100 mcg tablet take 1 tablet by oral route once oral 1 , Notes to Pharmacist: *Reorder from [facility] for eRx and Interaction Alerts*Taking cetirizine take 1 by oral route once oral 1 , Notes to Pharmacist: *Reorder from [facility] for eRx and Interaction Alerts*Taking FLUoxetine HCl 20 MG Capsule take 1 capsule (20 mg) by oral route once daily Oral 1 Taking Lisinopril 10 MG Tablet take 1 tablet (10 mg) by oral route once daily Oral 1 Taking Aspirin 81 81 MG Tablet Delayed Release take 1 tablet (81 mg) by oral route once daily Oral 1 Taking Calcium + Vitamin D3 600-5 MG-MCG Tablet take 1 by oral route once Oral 1 Taking JOSÉ C take 1 daily , Notes to Pharmacist: *Reorder from [facility] for eRx and Interaction Alerts*Taking traZODone HCl 100 MG Tablet take 1 tablet (100 mg) by oral route once daily at bedtime Oral 1 Taking Hydroxychloroquine Sulfate 200 MG Tablet as directed Orally twice daily Taking Ferrous Sulfate 324 (65 Fe) MG Tablet Delayed Release Oral Taking Gabapentin 300 MG Capsule 1 capsule Orally 4 times a day Medication List reviewed and reconciled with the patient * Allergies: C ipro: Allergy - Onset Date 07/05/2019Erythromycin: Allergy - Onset Date 07/05/2019no[Allergies Verified] Objective: * Vitals: B P:112/70mm Hg, HR:66/min, Temp:98.0F, Oxygen sat %:97%, Wt:158.8lbs, Wt- k.02kg, Ht:66in, Ht-cm:167.64cm, BMI:25.63Index, Body Surface Area:1.83. * Examination: G eneral Examination: General appearance: a lert, well-nourished and in no acute distress. Head: n ormocephalic, atraumatic. Eyes: n ormal. Skin: n o rash. Lungs: r espiratory effort normal. N eurology: Speech: n ormal. P sychiatry: Affect / mood: a ppropriate. R heumatology: m ild pain in shoulders with abduction. Assessment: * Assessment: 1. R heumatoid arthritis without rheumatoid factor, multiple sites - M06.09 (Primary) ? 2 . H istory of skin cancer - Z85.828 3 . H igh risk medication use - Z79.899 4 . L umbar back pain - M54.50 5 . P ain, joint, knee, right - M25.561 6 . P ain, joint, knee, left - M25.562 stable for the most part, co ntinue plaquenil and gabapentin, return in 3-4 months Plan: * Treatment: * Procedure Codes: * Follow Up: 3 Months * Billing Information: * Visit Code: 57913 Office Visit, Est Pt., Level 4. * Procedure Codes: * EEN ATTENDANT Sign off status: Completed true * Provider: Feli SANDRA MD Date: 0 06/15/2024 Generated for Juan Luis narayanan/Kaya/Kassysmitting on: 0 08/12/2024 08:14 AM CDT History and Physical Notes * HPI (History of Present Illness) Category Sub-Category Detail Notes Category Not es General Follow up seronegative, steroid responsive joint pain, +dry eyes and dry mouth, on plaquenil 400mg/day, on gabapentin, meds helping, neds refills, shoulders and back bother her a little, am stiffness: 5 minutes stopped Mobic due to decreased GFR fell had fractured left hip, had surgery in 12/2023 had kyphoplasty for vertebral fracture in 06/2022, started on norflex, had PT, had injections by pain specialist 05/2021, fell and had vertebral fracture, fell due to lacunar stroke 07/2021, serologies (-), X-rays of knees: mild OA 03/2020, serologies (-) eye exam: 10/2023 hx of squamous cell skin cancer Examination Category Sub-Category Detail Notes Category Not es Rheumatology mild pain in shoulders with abduction Neurology Speech: normal Psychiatry Affect / mood: appropriate General Examination General appearance: alert, w ell-nourished and in no acute distress Head: normocephalic, atrau matic Eyes: normal Lungs: respiratory effort n ormal Skin: no rash
--- OUTSIDE RECORDS SUMMARY | 2024-08-12 08:14 | XMS_ITS | Patient Health Record ---
Author Organization [facility] samuel Address [address] [place] [address] Care Team Providers Care Vp Design Name Role Phone Cooper Suazo MD Primary Care Provider Zandra SotoClaug Unavailable [phone] Allergies Allergen (clinical drug ingredient) Drug/Non Drug Allergy documented on EMR Reaction Allergy Type Onset Date Status ciprofloxacin Cipro Unknown Drug Allergy 07/05/2019 Ac tive erythromycin Erythromycin Unknown Drug Allergy 07/05/2019 Active Reason For Referral No Information Medications Medication SIG (Take, Route, Frequency, Duration) Notes Start Date End Date Status Metamucil 4 in 1 Fiber 55.6 % take 1 by oral route once Oral 1 Active Atorvastatin Calcium 20 MG take 1 tablet (20 mg) by oral route once daily Oral 1 Active Gabapentin 300 MG TAKE 1 CAPSULE FOUR TIMES DAILY for 90 Active metFORMIN HCl 500 MG take 1 tablet at bedtime Oral Active Hydroxychloroquine Sulfate 200 MG as directed Orally twice daily Active Ferrous Sulfate 324 (65 Fe) MG Oral for 90 Days Active JOSÉ C take 1 daily *Reorder from [facility] for eRx and Interaction Alerts* Active traZODone [...] oral route once daily Oral 1 Active Alive Once Daily Women 50 Plus 800-100 mcg take 1 tablet by oral route once oral 1 *Reorder from [facility] for eRx and Interaction Alerts* Active cetirizine take 1 by oral route once oral 1 *Reorder from [facility] for eRx and Interaction Alerts* Active Problems Problem Type SNOMED Code ICD Code Onset Dates Problem Status W/U Status Risk Notes Problem 51362604 Other chronic pain (G89.29) Active confirmed Problem 194039563 Rheumatoid arthritis without rheumatoid factor, multiple sites (M06.09) Active confirmed Problem History of malignant neoplasm of skin (971905790) History of skin cancer (Z85.828) Active confirmed Vital Signs Heart Rate 66 /min 06/15/2024 Temperature 98.0 degrees Fahrenheit 06/15/2024 Height-cm 167.64 cm 06/15/2024 Blood pressure diastolic 70 mm Hg 06/15/2024 Oximetry 97 % 06/15/2024 Weight-kg 72.02 kg 06/15/2024 Height 66 in 06/15/2024 Blood pressure systolic 112 mm Hg 06/15/2024 Weight 158.8 lbs 06/15/2024 BMI 25.63 kg/m2 06/15/2024 Encounters Encounter Location Date Provider Diagnosis [facility] [address] [place] [address] 08/26/2023 Annabel Du Rheumatoid arthritis without rheumatoid factor, multiple sites M06.09 ; History of skin cancer Z85.828 and High risk medication use Z79.899 [facility] [address] [place] [address] 11/26/2023 Annabel Du Rheumatoid arthritis without rheumatoid factor, multiple sites M06.09 ; History of skin cancer Z85.828 ; High risk medication use Z79.899 and Lumbar back pain M54.50 [facility] [address] [place] [address] 02/12/2024 Annabel Du Rheumatoid arthritis without rheumatoid factor, multiple sites M06.09 ; History of skin cancer Z85.828 ; High risk medication use Z79.899 and Lumbar back pain M54.50 [facility] [address] [place] [address] 03/19/2024 Annabel Du Rheumatoid arthritis without rheumatoid factor, multiple sites M06.09 ; History of skin cancer Z85.828 ; High risk medication use Z79.899 ; Lumbar back pain M54.50 ; Pain, joint, knee, right M25.561 and Pain, joint, knee, left M25.562 [facility] [address] [place] [address] 06/15/2024 Annabel Soto Rheumatoid arthritis without rheumatoid factor, multiple sites M06.09 ; History of skin cancer Z85.828 ; High risk medication use Z79.899 ; Lumbar back pain M54.50 ; Pain, joint, knee, right M25.561 and Pain, joint, knee, left M25.562 [facility] [address] [place] [address] [facility] [address] [place] [address] [facility] [address] [facility] [address] [place] [address] 03/22/2024 Annabel Soto Assessments Encounter Date Diagnosis (ICD Code) Assessment Notes Treatment Notes Treatment Clinical Notes Section Notes 08/26/2023 Rheumatoid arthritis without rheumatoid factor, multiple sites (ICD-10 - M06.09) clinically stable, knee pain better after injection, continue plaquenil and gabapentin, return in 3 months 08/26/2023 History of skin cancer (ICD-10 - Z85.828) clinically stable, knee pain better after injection, continue plaquenil and gabapentin, return in 3 months 11/26/2023 Rheumatoid arthritis without rheumatoid factor, multiple sites (ICD-10 - M06.09) stable for the most part,, knee pain not bad enough for injection today, continue plaquenil and gabapentin, return in 3 months 11/26/2023 History of skin cancer (ICD-10 - Z85.828) stable for the most part,, knee pain not bad enough for injection today, continue plaquenil and gabapentin, return in 3 months 02/12/2024 Rheumatoid arthritis without rheumatoid factor, multiple sites (ICD-10 - M06.09) just had surgery for hip fractures, will hold off steroid injection, wait until after hip fractures are healed, start tramadol prn 03/19/2024 History of skin cancer (ICD-10 - Z85.828) Each knee injected with 40mg of kenalog, continue plaquenil, return in 3 months 03/19/2024 Rheumatoid arthritis without rheumatoid factor, multiple sites (ICD-10 - M06.09) Each knee injected with 40mg of kenalog, continue plaquenil, return in 3 months 06/15/2024 Rheumatoid arthritis without rheumatoid factor, multiple sites (ICD-10 - M06.09) stable for the most part, continue plaquenil and gabapentin, return in 3-4 months 03/19/2024 High risk medication use (ICD-10 - Z79.899) Each knee injected with 40mg of kenalog, continue plaquenil, return in 3 months 06/15/2024 History of skin cancer (ICD-10 - Z85.828) stable for the most part, continue plaquenil and gabapentin, return in 3-4 months 02/12/2024 History of skin cancer (ICD-10 - Z85.828) just had surgery for hip fractures, will hold off steroid injection, wait until after hip fractures are healed, start tramadol prn 11/26/2023 High risk medication use (ICD-10 - Z79.899) stable for the most part,, knee pain not bad enough for injection today, continue plaquenil and gabapentin, return in 3 months 08/26/2023 High risk medication use (ICD-10 - Z79.899) clinically stable, knee pain better after injection, continue plaquenil and gabapentin, return in 3 months 11/26/2023 Lumbar back pain (ICD-10 - M54.50) stable for the most part,, knee pain not bad enough for injection today, continue plaquenil and gabapentin, return in 3 months 02/12/2024 High risk medication use (ICD-10 - Z79.899) just had surgery for hip fractures, will hold off steroid injection, wait until after hip fractures are healed, start tramadol prn 03/19/2024 Lumbar back pain (ICD-10 - M54.50) Each knee injected with 40mg of kenalog, continue plaquenil, return in 3 months 06/15/2024 High risk medication use (ICD-10 - Z79.899) stable for the most part, continue plaquenil and gabapentin, return in 3-4 months 06/15/2024 Lumbar back pain (ICD-10 - M54.50) stable for the most part, continue plaquenil and gabapentin, return in 3-4 months 03/19/2024 Pain, joint, knee, right (ICD-10 - M25.561) Each knee injected with 40mg of kenalog, continue plaquenil, return in 3 months 02/12/2024 Lumbar back pain (ICD-10 - M54.50) just had surgery for hip fractures, will hold off steroid injection, wait until after hip fractures are healed, start tramadol prn 03/19/2024 Pain, joint, knee, left (ICD-10 - M25.562) Each knee injected with 40mg of kenalog, continue plaquenil, return in 3 months 06/15/2024 Pain, joint, knee, right (ICD-10 - M25.561) stable for the most part, continue plaquenil and gabapentin, return in 3-4 months 06/15/2024 Pain, joint, knee, left (ICD-10 - M25.562) stable for the most part, continue plaquenil and gabapentin, return in 3-4 months Plan Of Treatment Next Appt Details Provider Name:Annabel Soto, 09/14 11:45:00 AM, [address], [facility] [address], [address], Insurance Providers Payer Name Payer Address Payer Phone Subscriber Number Group Number Insured Name Patient Relationship to Insured Coverage Start Date Coverage End Date Medicare [address] [address] [place] [address] [id number] Og Liudmila Self - patient is the insured [facility] [address] [place] [address] [phone] [id number] PLAN G Og Liudmila Self - patient is the insured [facility] [address] [address] [place] [address] [id number] OgMitchella Self - patient is the insured Medical (General) History Medical History History ICD Code Colitis; Fibromyalgia; Hyperlipidemia; Hypertension; Skin Cancer; Tremor; Vitamin D deficiency; Surgical History Surgery Date(Month/Year) Augmentation of both breasts with reduct ion of both areolae; 2019-07-05 rotator cuff repair; 2019-07-05 Hysterectomy; 2019-07-05 left hip fracture and surgery
--- OUTSIDE RECORDS SUMMARY | 2024-08-12 08:15 | XMS_ITS ---
Author Organization [facility] samuel Address [address] [facility] [address] [place] [address] Care Team Providers Care Chha Name Role Phone Gabriele HUIZAR, Cooper Primary Care Provider Zandra SandraAnnabel Unavailable [phone] Allergies Allergen (clinical drug ingredient) Drug/Non Drug Allergy documented on EMR Reaction Allergy Type Onset Date Status ciprofloxacin Cipro Unknown Drug Allergy 07/05/2019 Ac tive erythromycin Erythromycin Unknown Drug Allergy 07/05/2019 Active REASON FOR VISIT yd,f/u,cc, 3 month f/u, RA Medications Medication SIG (Take, Route, Frequency, Duration) Notes Start Date End Date Status JOSÉ C take 1 daily *Reorder from [facility] for eRx and Interaction Alerts* Active Gabapentin 300 MG 1 capsule Orally 4 times a day for 90 days Active Hydroxychloroquine Sulfate 200 MG as directed Orally twice daily Active traZODone HCl 100 MG take 1 tablet (100 mg) by oral route once daily at bedtime Oral 1 Active Ferrous Sulfate 324 (65 Fe) MG Oral for 90 Days Active Aspirin 81 81 MG take 1 [...] oral route once oral 1 *Reorder from [facility] for eRx and Interaction Alerts* Active Alive Once Daily Women 50 Plus 800-100 mcg take 1 tablet by oral route once oral 1 *Reorder from [facility] for eRx and Interaction Alerts* Active metFORMIN HCl 500 MG take 1 tablet at bedtime Oral Active Atorvastatin Calcium 20 MG take 1 tablet (20 mg) by oral route once daily Oral 1 Active Metamucil 4 in 1 Fiber 55.6 % take 1 by oral route once Oral 1 Active Vital Signs Temperature 97.5 degrees Fahrenheit 03/19/20 24 Blood pressure systolic 110 mm Hg 03/19/20 24 Blood pressure diastolic 72 mm Hg 024 Heart Rate 68 /min 03/19/2024 Height 66 in 03/19/2024 Weight 159.0 lbs 03/19/2024 BMI 25.66 kg/m2 03/19/2024 Oximetry 95 % 03/19/2024 Height-cm 167.64 cm 03/19/2024 Weight-kg 72.11 kg 03/19/2024 Encounters Encounter Location Date Provider Diagnosis [facility] [address] [facility] [address] [place] [address] 03/19/2024 Annabel Sandra Rheumatoid arthritis without rheumatoid factor, multiple sites M06.09 ; History of skin cancer Z85.828 ; High risk medication use Z79.899 ; Lumbar back pain M54.50 ; Pain, joint, knee, right M25.561 and Pain, joint, knee, left M25.562 Assessments Encounter Date Diagnosis (ICD Code) Assessment Notes Treatment Notes Treatment Clinical Notes Section Notes 03/19/2024 Rheumatoid arthritis without rheumatoid factor, multiple sites (ICD-10 - M06.09) Each knee injected with 40mg of kenalog, continue plaquenil, return in 3 months 03/19/2024 History of skin cancer (ICD-10 - Z85.828) Each knee injected with 40mg of kenalog, continue plaquenil, return in 3 months 03/19/2024 High risk medication use (ICD-10 - Z79.899) Each knee injected with 40mg of kenalog, continue plaquenil, return in 3 months 03/19/2024 Lumbar back pain (ICD-10 - M54.50) Each knee injected with 40mg of kenalog, continue plaquenil, return in 3 months 03/19/2024 Pain, joint, knee, right (ICD-10 - M25.561) Each knee injected with 40mg of kenalog, continue plaquenil, return in 3 months 03/19/2024 Pain, joint, knee, left (ICD-10 - M25.562) Each knee injected with 40mg of kenalog, continue plaquenil, return in 3 months Plan Of Treatment Next Appt Details Follow Up: 3 Months, Reason: Provider Name:Annabel Charles, 09/14 11:45:00 AM, [address], [facility] [address], [place], [address], Procedure Notes * Category Sub-Category Detail Notes Injections Triamcinolone acetate: Indicatio n(s):pain, , Dose:40mg, , Location:knee Progress Notes * Mitchell WALLERaDOB:1955 (68 yo F)Acc No.[id number]:03/19/2024 Progress Notes Patient: Liudmila COLEMAN Provider: Feli SANDRA MD :1955 A ge:68 Y S ex:Female Date:03/19/2024 Address:[address] [place], [place] [id number] Pcp:Cooper Suazo MD Subjective: * Chief Complaints: * Y d,f/u,cc3 month f/uRA * HPI: G eneral Follow up: seronegative, steroid responsive joint pain, +dry eyes and dry mouth, on plaquenil 400mg/day, on gabapentin, knees hurting, L knee worse, wants injections, shoulders bother her too stopped Mobic due to decreased GFR fell [...] both breasts with reduction of both areolae; [id number] cuff repair; [id number]; 2019-07-05 * Hospitalization/Major Diagno stic Procedure: * Family [...] 1 , Notes to Pharmacist: *Reorder from [facility] for eRx and Interaction Alerts*cetirizine take 1 by oral route once oral 1 , Notes to Pharmacist: *Reorder from [facility] for eRx and Interaction Alerts*FLUoxetine HCl 20 [...] daily , Notes to Pharmacist: *Reorder from [facility] for eRx and Interaction Alerts*traZODone HCl 100 [...] 1 , Notes to Pharmacist: *Reorder from [facility] for eRx and Interaction Alerts*Taking cetirizine take 1 by oral route once oral 1 , Notes to Pharmacist: *Reorder from [facility] for eRx and Interaction Alerts*Taking FLUoxetine HCl [...] daily , Notes to Pharmacist: *Reorder from [facility] for eRx and Interaction Alerts*Taking traZODone HCl [...] Date 07/05/2019no[Allergies Verified] Objective: * Vitals: B P:110/72mm Hg, HR:68/min, Temp:97.5F, Oxygen sat %:95%, Wt:159.0lbs, Wt- k.11kg, Ht:66in, Ht-cm:167.64cm, BMI:25.66Index, Body Surface Area:1.83. * Examination: G eneral Examination: General appearance: a lert, well-nourished and in no acute distress. Head: n ormocephalic, atraumatic. Eyes: n ormal. Skin: n o rash. Lungs: r espiratory effort normal. N eurology: Speech: n ormal. P sychiatry: Affect / mood: a ppropriate. R heumatology: k nees tender. Assessment: * Assessment: 1. R heumatoid arthritis without rheumatoid factor, multiple sites - M06.09 (Primary) ? 2 . H istory of skin cancer - Z85.828 3 . H igh risk medication use - Z79.899 4 . L umbar back pain - M54.50 5 . P ain, joint, knee, right - M25.561 6 . P ain, joint, knee, left - M25.562 Each knee injected with 40mg of kenalog, continue plaquenil, return in 3 months Plan: * Treatment: * Procedures: I njections: Triamcinolone acetate: I ndication(s):pain, , Dose:40mg, , Location:knee. V erbal consent was obtained. With aseptic techniques, each knee joint was injected with 40mg of kenalog and 2ml of lidocaine. No complications. * Procedure Codes: 2 0610 DRAIN/INJECT, JOINT/[id number] DRAIN/INJECT, JOINT/[id number] INJ TRIAMCINOLONE ACETONIDE 10 MG, Units: 8.00 * Follow Up: 3 Months * Billing Information: * Visit Code: 56531 Office Visit, Est Pt., Level 4. Modifiers: 25 * Procedure Codes: 86805 DRAIN/INJECT, JOINT/BURSA. 69068 DRAIN/INJECT, JOINT/BURSA. J3301 INJ TRIAMCINOLONE ACETONIDE 10 MG. Units: 8.00. * T ATTENDANT Sign off status: Completed true * Provider: Feli SANDRA MD Date: 05/19/2023 Generated for Juan Luis narayanan/Kaya/Dinhitting on: 0 08/12/2024 08:14 AM CDT History and Physical Notes * HPI (History of Present Illness) Category Sub-Category Detail Notes Category Not es General Follow up seronegative, steroid responsive joint pain, +dry eyes and dry mouth, on plaquenil 400mg/day, on gabapentin, knees hurting, L knee worse, wants injections, shoulders bother her too stopped Mobic due to decreased GFR fell [...] Sub-Category Detail Notes Category Not es Rheumatology knees tender Neurology Speech: normal Psychiatry Affect / mood: appropriate General Examination General appearance: alert, w ell-nourished and in no acute distress Head: normocephalic, atrau matic Eyes: normal Lungs: respiratory effort n ormal Skin: no rash
--- OUTSIDE RECORDS SUMMARY | 2024-08-12 08:15 | XMS_ITS | Encounter Summary ---
Author Organization [facility] Address [address] [place] [address] Care Team Providers Care [employer] Grinding [employer] Operator Name Role Phone Cooper Suazo MD Primary Care Provider [phone] Encounter Details Date Type Department Care Team (Late st Contact Info) Description 08/27/2018 Lab Requisition [facility] Lab [address] [place] [address] [place] [address] Social History Tobacco Use Types Packs/Day Years Used Date Smoking Tobacco: Never Assessed Sex and Gender Information Value Date Recorded Sex Assigned at Not on file Gender Identity Not on file Sexual Orientation Not on file documented as of this encounter Plan of Treatment Not on file documented as of this encounter Procedures Procedure Name Priority Date/Time Associated Diagnosis Comments DERMATOPATHOLOGY Routine 08/26/2018 12:0 0 AM CDT documented in this encounter Results * DERMATOPATHOLOGY (08/26/2018 12:00 AM CDT) Case Report Dermatopathology Report Case: [id number] Authorizing Provider: Ian Hall MD Collected: 08/26/2018 12:00 AM Pathologist: Alessandra Madrid MD Received: 08/27/2018 01:37 PM Specimens: A) - Skin, left upper back B) - Skin, left lower back 9 12:51 PM CDT DERMATOPATHOLOGY LABORATORY Final Diagnosis Specimen A. 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 SKIN, left lower back: BASAL CELL CARCINOMA, SUPERFICIAL MULTIFOCAL (C44.519) 12:51 PM CDT DERMATOPATHOLOGY LABORATORY Clinical History A-B: R/O SCC 12:51 PM CDT DERMATOPATHOLOGY LABORATORY Gross Description Specimen A: Received is one formalin filled container labeled with the patient's name and designated left upper back. The specimen consists of a shave biopsy measuring 17x86i0 mm. Jar 0. Specimen B: Received is one formalin filled container labeled with the patient's name and designated left lower back. The specimen consists of a shave biopsy measuring 40n25z0 mm. Jar 0. 12:51 PM CDT DERMATOPATHOLOGY LABORATORY Microscopic Description Specimen A. SKIN, left upper back: The epidermis is mildly acanthotic. There is a lichenoid infiltrate with vacuolar changes of basilar keratinocytes and scattered necrotic keratinocytes. At the edge of the biopsy there are nests of cytologically bland melanocytes within the dermis. Specimen B. SKIN, left lower back: Attached to the undersurface of the epidermis, there are small aggregates of basaloid cells with a high nuclear to cytoplasmic ratio and peripheral palisading. 12:51 PM CDT DERMATOPATHOLOGY LABORATORY Disclaimer An external and internal positive and negative controls are appropriate for the histochemical, immunohistochemical and immunofluorescence stain(s) in this case (if any), except where stated explicitly. The performance characteristics of the stain(s) cited in this report were developed and its performance characteristic determined by the Dermatopathology Laboratory at [facility], directed by Dr. Tayla Chakraborty. These tests need not be, and therefore are not, approved by the [place] Food and Drug Administration. The tests are used for clinical purposes. Billing Codes Specimen Charges Stain Charges 03751 47537 1 1 12:51 PM CDT DERMATOPATHOLOGY LABORATORY Embedded Images 12:51 PM CDT DERMATOPATHOLOGY LABORATORY Pathology/Cytology TISSUE SPECIMEN FROM SKIN / Unknown 08/26/2018 08/27/2018 1:37 PM CDT Miscellaneous samples (specimen) TISSUE SPECIMEN FROM SKIN / Unknown 08/26/2018 08/27/2018 1:37 PM CDT Ian Hall MD LAB - PATHOLOGY/CYTO LOGY ORDERABLES DERMATOPATHOLOGY LABORATORY [facility] - Department of Dermatology [address] [place] [address], 5[address] Floor Lab [address] [phone] documented in this encounter Visit Diagnoses Not on filedocumented in this encounter Care Teams [employer] Operator Relationship Specialty Start Date End Date Cooper Suazo MD [address] [place] [address] [phone] PCP - General 11/09/08 documented as of this encounter
--- OUTSIDE RECORDS SUMMARY | 2024-08-12 08:15 | XMS_ITS | Clinical Summary ---
Author Organization [facility] Address [address] [place] [address] Care Team Providers Care Gallery Or Museum Guide Name Role Phone Cooper Suazo MD Primary Care Provider [phone] Matias Betancur MD Unavailable [phone] Allergies No known active allergies Medications gabapentin (NEURONTIN) 300 MG capsule Take 1 capsule (300 mg total) by mouth 4 (four) times daily. Active traZODone (DESYREL) 100 MG tablet Take 1 tablet (100 mg total) by mouth nightly at bedtime. Active FLUoxetine (PROZAC) 20 MG capsule Take 1 capsule (20 mg total) by mouth daily. Active hydroxychloroquine (PLAQUENIL) 200 MG tablet Take 1 tablet (200 mg total) by mouth 2 (two) times daily. Active mulitvitamin (THERA) tablet Take 1 tablet by mouth daily. Active Bioflavonoid Products (JOSÉ C OR) Take 1,000 mg by mouth daily. Active Calcium Carb-Cholecalciferol (CALCIUM/VITAMIN D OR) Take 1 tablet by mouth daily. Active probiotic (FLORAJEN3) Cap capsule Take 1 capsule by mouth nightly. Active docusate sodium (COLACE) 100 MG capsule Take 1 capsule (100 mg total) by mouth nightly. Active metFORMIN ER (GLUCOPHAGE-XR) 500 MG 24 hr tablet Take 1 tablet (500 mg total) by mouth daily with breakfast. 07/30/19 23 Active Turmeric (QC TUMERIC COMPLEX) 500 MG Cap Take by mouth daily. Active Nutritional Supplements (FRUIT & VEGETABLE DAILY OR) Take by mouth daily. Active atorvastatin (LIPITOR) 20 MG tablet Take 1 tablet (20 mg total) by mouth nightly at bedtime. 30 tablet 01/01/20 Active ferrous sulfate EC 324 (65 Fe) MG tablet Take 1 tablet (324 mg total) by mouth daily with breakfast. 30 tablet 01/02/20 Active ACETAMINOPHEN EXTRA STRENGTH 500 MG tablet Take 1 tablet (500 mg total) by mouth every 6 (six) hours as needed. 01/14/20 Active Psyllium (METAMUCIL 4 IN 1 FIBER) 55.6 % Powder take 1 by oral route once Oral 1 Active lisinopril (PRINIVIL) 10 MG tablet 01/01/20 Active lisinopril (PRINIVIL) 5 MG tablet Take 1 tablet (5 mg total) by mouth daily. Hold for SBP <110 30 tablet 01/02/20 24 025 Discontin ued(Dupli godfrey Med) acidophilus (FLORAJEN) capsuleIndications:Cl osed displaced intertrochanteric fracture of left femur, initial encounter ([facility]) Take 1 capsule by mouth daily. 30 capsule 01/02/20 24 025 Discontin ued(Thera py completed ) enoxaparin (LOVENOX) 40 MG/0.4ML Solution Prefilled SyringeIndications:Cl osed displaced intertrochanteric fracture of left femur, initial encounter ([facility]) Inject 0.4 mLs (40 mg total) into the skin daily. 1 mL 01/02/20 24 025 Discontin ued(Thera py completed ) oxyCODONE-acetaminoph en (PERCOCET) 5-325 MG tabletIndications:Acu te Pain < 7 Day Supply Take 1 tablet by mouth every 4 (four) hours as needed. Indications : Acute Pain < 7 Day Supply 3 tablet 01/01/20 24 025 Discontin ued(Thera py completed ) Active Problems Problem Noted Date Diagnosed Date Closed displaced intertrocha nteric fracture of left femur, initial encounter ([facility]) 12/28/2023 Chronic systolic congestive heart failure ([facility]) 03/21/2023 Overview (03/21/2023): EF 45-50% ACC/AHA Stage B with NYHA class II symptoms Schmorl's nodes of lumbar region 10/09/2022 Facet hypertrophy of lumbar region 10/09/2022 Myofascial pain 08/28/2022 Acute right-sided low back pain without sciatica 08/28/2022 S/P kyphoplasty 07/11/2022 Midline low back pain withou t sciatica, unspecified chronicity 07/11/2022 Myelopathy ([facility]) 01/19/2022 Syncope 01/07/2022 Essential (primary) hypertension 01/07/2022 T12 burst fracture ([facility]) 12/18/2021 Abnormal MRI, spinal cord 12/18/2021 Gait disturbance 12/18/2021 Resolved Problems Problem Noted Date Diagnosed Date Resolved Date Hip fracture ([facility]) 12/28/2023 12/28/2023 Encounters Date Type Department Care Team Description 07/26/2024 3:00 PM CDT Office Visit [facility] Multispecialty [facility] - [address], [address] [place] [address] Herman Barajas MD Follow Up (Pt. Fell and broke her left hip back in December 2023) 07/26/2024 Travel 06/17/2024 Scan HEALTH INFO SRVCS Scanned, Doc Med Group from Last 3 Months Immunizations Name Administration Dates Next Due Influenza (Generic) 02/09/2020 Influenza Adult (Generic) 01/14/2019,03/02/2018 Pneumococcal (Prevnar 13) 02/09/2020 Shingrix 04/05/2019,01/14/2019 Tdap (Generic) 03/22/2021 Family History Medical History Relation Comments Diabetes Father Heart Attack Father Heart Disease Father Hypertension Father Seizures Neg Hx Relation Status Comments Brother 1 (Age 55) Brother 2 Alive Father (Age 65) Maternal Grandmother (Age 76) Mother (Age 91) Social History Tobacco Use Types Packs/Day Years Used Date Smoking Tobacco: Never Passive Smoke Exposure: Never Smokeless Tobacco: Never Tobacco Cessation:Counseling Given: Yes Alcohol Use Standard Drinks/Week Comments Never 0 (1 standard drink = 0.6 oz pur e alcohol) very rare [facility] Utilities Answer Date Recorded In the past 12 months has th e electric, gas, oil, or water company threatened to shut off services in your [...] any time in the past 12 m [facility], were you homeless or living in a group home (including now)? No 12/28/2023 Comments No Sex and Gender Information Value Date Recorded Sex Assigned at Not on file Legal Sex Female 10:06 AM CDT Gender Identity Not on file Sexual Orientation Not on file Last Filed Vital Signs Vital Sign Reading Time Taken Comments Blood Pressure 134/78 07/26/2024 2:55 PM CDT Pulse 57 07/26/2024 2:55 PM CDT Temperature 36.7 C (98 F) 07/26/2024 2:55 PM CDT Respiratory Rate 16 07/26/2024 2:55 PM CDT Oxygen Saturation 100% 07/26/2024 2:55 PM CDT Inhaled Oxygen Concentration - - Weight 68.9 kg (152 lb) 07/26/2024 2:55 PM CDT Height 167.6 cm (5' 6 ) 07/26/2024 2:55 PM CDT Body Mass Index 24.53 07/26/2024 2:55 PM CDT Plan of Treatment Upcoming Encounters Date Type Department Care Team (Late st Contact Info) Description 08/12/2024 12:30 PM CDT Appointment [facility] [address] [place] [address] Herman Barajas MD [address] [place], [place] [address] 08/12/2024 1:15 PM CDT Appointment [facility] [address] [place] [address] Herman Barajas MD [address], [place] [address] 08/24/2024 2:15 PM CDT Appointment [facility] [place], [place] [address] Herman Barajas MD [address] [place] [address] 08/24/2024 3:15 PM CDT Appointment [facility] [place] [address] Herman Barajas MD [address] [facility] [place] [address] 11/16/2024 10:30 AM CDT Office Visit [facility], [address] [place] [address] Dwayne Luis MD [facility]. [address] [place] [address] 12/14/2024 2:40 PM CDT Office Visit [facility] Mult[facility] - [facility] [address] [facility], [address] [facility] [place] [phone] Herman Barajas MD [address] [place] [address] Health Maintenance Due Date Last Done Comments Colorectal Cancer Screening Colonoscopy (10 Years) 1956 Hepatitis C 1974 Mammogram Screening 1996 RSV Immunization or 60+ Years (1 - Risk 60-74 years 1-dose series) 2016 Pneumococcal Vaccine: 65+ Years (2 of 2 - PPSV23 or PCV20) 04/05/2020 02/09/2020 Annual Medicare Wellness Visit 2021 Dexa Scan (General) 2021 ASCVD LDL 02/05/2023 02/05/2022 COVID-19 Vaccine ( - 2023-2 5 season) 2024 01/03/2021, 07/15/2020, 06/24/2020 PHQ-2 (Physician [place]) 05/12/2024 12/22/2023 DTaP, Tdap and Td Vaccines ( 2 - Td or Tdap) 03/22/2031 03/22/2021 Zoster Vaccines Completed 04/05/2019, 01/14/2019 AAA SCREENING Completed 06/23/2023, 04/03/2022 Meningococcal B Vaccine Aged Out No l onger eligible based on patient's age to complete this topic Meningococcal Vaccine Aged Out No jalyn yung eligible based on patient's age to complete this topic RSV Immunizations Under 20 Months Aged Out No longer eligible b ased on patient's age to complete this topic Goals Goal Patient Goal Type Associated Problems Recent Progress Patient-Stated? Author Family - family caregiver with be involved in care transitions and discharge planning Lifestyle No Orville Lares, RN Medical Devices Implanted Type Area Industrial Gas Production Operator Device Identifier Shelf Expiration Date Model / Serial / Lot Nail 10mm 170mm Hip Trochanter [id number] Intramedullary 125d Kit Titanium Sterile - [id number] Implanted:Qty: 1 on 12/29/2023 by Luis Migule Carney MD at [facility] Nail Left: Hip [employer] [id number] 09/08/2028 [id number] / / [id number] Screw [place] Lag 10.5mm X 95mm - [id number] Implanted:Qty: 1 on 12/29/2023 by Luis Miguel Carney MD at [facility] Screw Left: Hip [employer] [id number] 03/11/2028 [id number] / / [id number] Screw [place] Locking 5mm X 35mm - [id number] Implanted:Qty: 1 on 12/29/2023 by Luis Miguel Carney MD at [facility] Screw Left: Hip [employer] [id number] 03/11/2028 [id number] S / / [id number] Omnicurve 11g 15mm Fracture Kit Implanted:Qty: 1 on 07/02/2022 by Matias Betancur MD at [facility] N/A: Back [id number] 04/09/2023 1032-115- 000 / / [id number] Avaflex Curved Needle Implanted:Qty: 1 on 07/02/2022 by Matias Betancur MD at [facility] N/A: Back [id number] 02/07/2024 1025-011- 500 / / [id number] Procedures Procedure Name Priority Date/Time Associated Diagnosis Comments MRI THOR SPINE WWO CON Routine 06/23/2023 10:46 AM HANDLE AND VENT MACHINE OPERATOR Cervical myelopathy Thoracic myelopathy LIPID PANEL Routine 02/05/2022 9:50 AM CDT DODGE (dyspnea on exertion) Abnormal stress test Hyperlipidemia, mixed from Last 3 Months or Most Recently Relevant to Health Maintenance Results * MRI THOR SPINE WWO CON (06/23/2023 10:46 AM HANDLE AND VENT MACHINE OPERATOR) Anatomical Region Laterality Modality Spine Magnetic Resonan ce 06/23/2023 7:10 PM HANDLE AND VENT MACHINE OPERATOR Impressions 06/23/2023 7:17 PM HANDLE AND VENT MACHINE OPERATOR IMPRESSION: 1. Normal appearance of the spinal cord. 2. Mild multilevel cervical spondylosis. 3. Minimal thoracic spondylosis. 4. Incidental severe atrophy of the right infraspinatus muscle Referred By: HERMAN BARAJAS Interpreted By: Darren Iniguez MD, 06/23/2023 7:10 PM Narrative 06/23/2023 7:17 PM HANDLE AND VENT MACHINE OPERATOR EXAMINATION: MRI CERV SPINE WWO CON, MRI THOR SPINE WWO CON, 06/23/2023 7:10 PM TECHNIQUE: Multiplanar multisequence magnetic resonance images of the cervical and thoracic spine were obtained before and after the administration of 14 mL of Dotarem injected to the right antecubital fossa IV, without evidence of adverse reaction. HISTORY: Back pain, difficulty walking COMPARISON: MRI cervical spine on 03/31/2022, MRI thoracic spinal 04/03/2022. FINDINGS: MRI CERVICAL SPINE: The cervical vertebral bodies and facets are well aligned. The cervical vertebral body heights are preserved. There is intervertebral disc height loss at C5-6 with endplate degenerative change at this level. Thickening of the posterior longitudinal ligament at C2 and C3. The cervical spinal cord has a normal signal throughout its course. There is no abnormal enhancement of the cervical spinal cord. C2-3: Disc bulge impressing the ventral thecal sac. Mild spinal canal stenosis. Uncovertebral joint hypertrophy. Mild left neural foraminal stenosis. No right neural foraminal stenosis. C3-4: Disc bulge impressing the ventral thecal sac. Moderate spinal canal stenosis. Vertebral joint at virtually. Mild left neural foraminal stenosis. No right neural foraminal stenosis. C4-5: Disc bulge with superimposed central disc protrusion impressing the ventral thecal sac. Mild to moderate spinal canal stenosis. Uncovertebral joint hypertrophy. Mild bilateral neural foraminal stenosis, right greater than left. C5-6: Disc bulge impressing the ventral thecal sac. Mild spinal canal stenosis. Uncovertebral joint hypertrophy. Mild left neural foraminal stenosis. No right neural foraminal stenosis. C6-7: Central disc protrusion impressing the ventral thecal sac. Mild spinal canal stenosis. Uncovertebral joint hypertrophy. Mild to moderate left neural foraminal stenosis. No right neural foraminal stenosis. C7-T1: No significant spinal canal or neural foraminal stenosis. MR THORACIC SPINE: There are 12 rib-bearing thoracic type vertebral bodies. The thoracic vertebral bodies and facets are well aligned. Chronic appearing persistent moderate compression deformity involving the T12 vertebral body status post vertebroplasty. Otherwise, marrow signal appears within normal limits. There is no abnormal prevertebral or paraspinal soft tissue swelling. The thoracic spinal cord is normal signal throughout its course. Facet hypertrophy contributes to mild bilateral T2-8-9, T9-10, T10-11 and T11-12 neural foraminal stenosis. No significant spinal canal stenosis at any level. Findings suggestive of right infraspinatus rotator cuff muscle atrophy Procedure Note Darren Iniguez MD - 06/23/2023 EXAMINATION: MRI CERV SPINE O CON, MRI THOR SPINE [facility] CON, :10 PM TECHNIQUE: Multiplanar multisequence magnetic resonance images of thecervical and thoracic spine were obtained before and after theadministration of 14 mL of Dotarem injected to the right antecubital fossaIV, without evidence of adverse reaction. HISTORY: Back pain, difficulty walking COMPARISON: MRI cervical spine on 03/31/2022, MRI thoracic goaukg3504/03/2022. FINDINGS: MRI CERVICAL SPINE: The cervical vertebral bodies and facets are wellaligned. The cervical vertebral body heights are preserved. There isintervertebral disc height loss at C5-6 with endplate degenerative changeat this level. Thickening of the posterior longitudinal ligament at C2and C3. The cervical spinal cord has a normal signal throughout itscourse. There is no abnormal enhancement of the cervical spinal cord. C2-3: Disc bulge impressing the ventral thecal sac. Mild spinal canalstenosis. Uncovertebral joint hypertrophy. Mild left neural foraminalstenosis. No right neural foraminal stenosis. C3-4: Disc bulge impressing the ventral thecal sac. Moderate spinal canalstenosis. Vertebral joint at virtually. Mild left neural foraminalstenosis. No right neural foraminal stenosis. C4-5: Disc bulge with superimposed central disc protrusion impressing theventral thecal sac. Mild to moderate spinal canal stenosis.Uncovertebral joint hypertrophy. Mild bilateral neural foraminalstenosis, right greater than left. C5-6: Disc bulge impressing the ventral thecal sac. Mild spinal canalstenosis. Uncovertebral joint hypertrophy. Mild left neural foraminalstenosis. No right neural foraminal stenosis. C6-7: Central disc protrusion impressing the ventral thecal sac. Mildspinal canal stenosis. Uncovertebral joint hypertrophy. Mild to moderateleft neural foraminal stenosis. No right neural foraminal stenosis. C7-T1: No significant spinal canal or neural foraminal stenosis. MR THORACIC SPINE: There are 12 rib-bearing thoracic type vertebralbodies. The thoracic vertebral bodies and facets are well aligned.Chronic appearing persistent moderate compression deformity involving theT12 vertebral body status post vertebroplasty. Otherwise, marrow signalappears within normal limits. There is no abnormal prevertebral orparaspinal soft tissue swelling. The thoracic spinal cord is normalsignal throughout its course. Facet hypertrophy contributes to mildbilateral T2-8-9, T9-10, T10-11 and T11-12 neural foraminal stenosis. Nosignificant spinal canal stenosis at any level. Findings suggestive ofright infraspinatus rotator cuff muscle atrophy IMPRESSION: 1. Normal appearance of the spinal cord. 2. Mild multilevel cervical spondylosis. 3. Minimal thoracic spondylosis. 4. Incidental severe atrophy of the right infraspinatus muscle Referred By: HERMAN BARAJAS Interpreted By: Darren Iniguez MD, 06/23/2023 7:10 PM us Herman Barajas MD MRI Final Res ult * (ABNORMAL) LIPID PANEL (02/05/2022 9:50 AM CDT) CHOLESTEROL 176 <200 MG/DL 02/05/2022 10:56 AM CDT [facility] TRIGLYCERIDES 170(H) <150 MG/DL 02/05/2022 10:56 AM CDT [facility] HDL 87 >40.0 MG/DL 02/05/2022 10:56 AM CDT [facility] LDL (CALCULATED) 55 <100 MG/DL 02/05/2022 10:56 AM CDT [facility] NON HDL CHOLESTEROL 89 <130 MG/DL 02/05/2022 10:56 AM CDT [facility] CHOL/HDL RATIO 2.0 0.0 - 4.5 02/05/2022 10:56 AM CDT [facility] VLDL CALCULATION 34 5 - 55 MG/DL 02/05/2022 10:56 AM CDT [facility] LIPID INTERPRETATION 02/05/2022 10:56 AM CDT [facility] Comment: [facility] CONCENSUS REPORT RECOMMENDATIONS: ADULT CHILD LOW RISK: CHOLESTEROL <200 <170 TRIGLYCERIDE <150 --- HDL >=60 --- LDL <100 <110 BORDERLINE: CHOLESTEROL 200-239 170-199 TRIGLYCERIDE 150-199 --- HDL 40-59 --- LDL 100-159 110-129 HIGH RISK: CHOLESTEROL >=240 >=200 TRIGLYCERIDE >=200 --- HDL <40 --- LDL >=160 >=130 02/05/2022 9:50 AM CDT us Daren See MD,PHD LABORATORY Final Re sult [facility] [address] [place] [address], from Last 3 Months or Most Recently Relevant to Health Maintenance Insurance MEDICARE [facility] Advance Directives * Full Code (Latest Code Status on File) Date Activated Date Inactivated Comments 12/28/2023 12:53 AM 01/01/2024 5:16 PM * Full Code Date Activated Date Inactivated Comments 02/06/2022 1:44 PM 02/06/2022 6:46 PM Care Teams Gallery Or Museum Guide Relationship Specialty Start Date End Date Cooper Suazo MD PCP - General FAMILY PRACTICE 10/17/21 Matias Betancur MD [address] [place] [address] Surgeon NEUROLOGICAL SURGERY 06/20/22
--- OUTSIDE RECORDS SUMMARY | 2024-08-12 08:15 | XMS_ITS | Encounter Summary ---
Author Organization [facility] Address [address] [place] [address] Care Team Providers Care Quantitative Researcher Name Role Phone Cooper Suazo MD Primary Care Provider [phone] Encounter Details Date Type Department Care Team (Late st Contact Info) Description 11/20/2021 Lab Requisition [facility] DermPath Lab [address] [facility] [place] [address] Radha Knutson MD [address] [facility] [address] [place] [address] Social History Tobacco Use Types Packs/Day Years Used Date Smoking Tobacco: Never Assessed Sex and Gender Information Value Date Recorded Sex Assigned at Not on file Gender Identity Not on file Sexual Orientation Not on file documented as of this encounter Plan of Treatment Not on file documented as of this encounter Procedures Procedure Name Priority Date/Time Associated Diagnosis Comments DERMATOPATHOLOGY Routine 11/19/2021 12:0 0 AM CDT documented in this encounter Results * DERMATOPATHOLOGY (11/19/2021 12:00 AM CDT) Case Report Dermatopathology Report Case: [id number] Authorizing Provider: Radha Knutson MD Collected: 11/19/2021 12:00 AM Ordering Location: [facility] Care DermPath Lab Received: 11/20/2021 01:19 PM Pathologist: Miri Pandya MD Specimen: Skin, left mid rios 2 1:52 PM CDT DERMATOPATHOLOGY LABORATORY Final Diagnosis Specimen A. SKIN, left mid rios: DERMAL SCAR RESIDUAL SQUAMOUS CELL CARCINOMA NOT IDENTIFIED (L90.5) 2 1:52 PM CDT DERMATOPATHOLOGY LABORATORY Clinical History SCC Bx Proven 2 1:52 PM CDT DERMATOPATHOLOGY LABORATORY Gross Description Specimen A: Received is one formalin filled container labeled with the patient's name and designated left mid rios. The specimen consists of a non-oriented ellipse of skin measuring [id number]. There is a central lesion present measuring 10x9mm. The epidermal surface is unremarkable. The margin is inked green. The 12 o'clock and 6 o'clock tips are submitted in cassette 1. The remainder of the ellipse is serially sectioned and submitted in cassette 2 -4. Jar 0. 2 1:52 PM CDT DERMATOPATHOLOGY LABORATORY Microscopic Description Specimen A. SKIN, left mid rios: There are fibroblasts and collagen bundles oriented parallel to the skin surface. There are elongated blood vessels, some of which are oriented perpendicular to the skin surface. No residual squamous cell carcinoma is identified. 2 1:52 PM CDT DERMATOPATHOLOGY LABORATORY Disclaimer An external and internal positive and negative controls are appropriate for the histochemical, immunohistochemical and immunofluorescence stain(s) in this case (if any), except where stated explicitly. The performance characteristics of the stain(s) cited in this report were developed and its performance characteristic determined by the Dermatopathology Laboratory at [facility], directed by Dr. Tayla Chakraborty. These tests need not be, and therefore are not, approved by the [place] Food and Drug Administration. The tests are used for clinical purposes. Billing Codes Specimen Charges Stain Charges 61137 1 2 1:52 PM CDT DERMATOPATHOLOGY LABORATORY Embedded Images 2 1:52 PM CDT DERMATOPATHOLOGY LABORATORY Pathology/Cytolog y TISSUE SPECIMEN FROM SKIN / Unknown 11/19/2021 11/20/2021 1:19 PM CDT Radha Knutson MD LAB - PATHOLOGY/CYT OLOGY ORDERABLES DERMATOPATHOLOGY LABORATORY [facility] - Department of Dermatology [address], [address] [phone] documented in this encounter Visit Diagnoses Not on filedocumented in this encounter Care Teams Quantitative Researcher Relationship Specialty Start Date End Date Cooper Suazo MD [facility] [place] [address] PCP - General 11/09/08 documented as of this encounter
--- OUTSIDE RECORDS SUMMARY | 2024-08-12 08:15 | XMS_ITS | Clinical Summary ---
Author Organization [facility] Address [address] [place] [address] Care Team Providers Care Civil Engineering Manager Name Role Phone Cooper Suazo MD Primary Care Provider [phone]- [phone] Source Comments [facility],non-owned Affiliates and Associated Physician Practices is amultiple site organization consisting of ambulatory clinics and hospital sitesin [place], [place], [place] and [place]. This disclosure is being madepursuant to the Care Everywhere program and may not contain all information available regarding this patient. Last updated 18.[facility] Social History Tobacco Use Types Packs/Day Years Used Date Smoking Tobacco: Never Assessed Sex and Gender Information Value Date Recorded Sex Assigned at Not on file Gender Identity Not on file Sexual Orientation Not on file Plan of Treatment Health Maintenance Due Date Last Done Comments BONE DENSITY TESTING 1955 COLOGUARD (AGES 45-75) - COL ON CA SCREENING 1955 COLON MONITORING 1955 COLONOSCOPY - COLON CA SCREENING 1956 CT COLONOGRAPHY - COLON CA SCREENING 1955 Colorectal Cancer Screening 1955 FIT - COLON CA SCREENING 1955 FLEX SIG - COLON CA SCREENING 1955 LIPID TESTING 1955 MAMMOGRAM 1955 MEDICARE AWV 12 MONTHS 1955 HEPATITIS C SCREENING 08/21/1974 DTAP/TDAP/TD VACCINES (1 - Tdap) 08/26/1975 PNEUMOCOCCAL VACCINE 50+ (1 of 1 - PCV) 2006 ZOSTER VACCINE (1 of 2) 2006 COVID-19 VACCINE (1 - 2023-2 5 season) 2024 INFLUENZA VACCINE (#1) 2024 DEPRESSION SCREENING 05/12/2024 Respiratory Syncytial Virus (RSV) Vaccine Pt: or over 60 yrs (1 - 1-dose 75+ series) 08/26/2031 HEPATITIS B VACCINE Aged Out No longe r eligible based on patient's age to complete this topic HIB VACCINE Aged Out No longer eligi ble based on patient's age to complete this topic HPV VACCINE Aged Out No longer eligi ble based on patient's age to complete this topic MENINGOCOCCAL (Group B) VACC INE SHARED DECISION-MAKING Aged Out No longer eligibl e based on patient's age to complete this topic MENINGOCOCCAL GROUPS A/C/Y/W VACCINE Aged Out No longer eligible b ased on patient's age to complete this topic Care Teams Civil Engineering Manager Relationship Specialty Start Date End Date Cooper Suazo MD [facility] [place] [address] PCP - General 11/09/08
== END 2024-08-12 08:07 | disposition home or self-care (01) ==
PROVIDERS: PCP Family Medicine; Visit Provider Nurse Practitioner Family
DX: Z12.31 Encounter for screening mammogram for malignant neoplasm of breast (principal); R92.8 Other abnormal and inconclusive findings on diagnostic imaging of breast; M85.89 Other specified disorders of bone density and structure, multiple sites; Z78.0 Asymptomatic menopausal state
CPT/HCPCS: 77063; 77067; 77080

== ENCOUNTER 2024-08-31 10:53 | Outpatient (CLI) | payer MEDICARE, SELFPAY ==
--- NOTE | ~2024-08-31 | MMUS_ITS ---
EXAMINATION: MM diagnostic leon LT w elsi, US breast LT limited HISTORY: Follow-up left breast mass TECHNIQUE: Additional 3-D tomosynthesis images of the left breast were performed and synthetic 2-D im ages were generated. CAD analysis was submitted and interpreted. High resolution Limited left breast ultrasound was performed. COMPARISON: Comparison to multiple prior studies sequentially, with oldest reviewed study dated 07/2017. BREAST PARENCHYMAL COMPOSITION: Not dense: There are scattered areas of fibroglandular density. FINDINGS: MAMMOGRAPHIC FINDINGS: The focal low-density mass in the left breast is persistent, although is dense with spot compression views, likely benign. There are no suspicious calcifications or architectural distortion. ULTRASOUND: Limited left breast ultrasound: At 1:00, 3 cm from the nipple there is an oval circumscribed parallel oriented hypoechoic mass measuring 10 x 8 x 6 mm compared with 12 x 8 x 5 mm on prior examination. A t 3:00, 6 cm from the nipple there is a new oval hypoechoic mass with parallel orientation, mixed pos terior attenuation and no internal vascularity measuring 8 x 3 x 10 mm, likely benign. At 3:00 near t he nipple there is a 3 mm cyst. There is a mildly enlarged lymph node of the left axilla with normal fatty hilum measuring 2.7 cm, likely reactive. IMPRESSION: 1. Probable benign left breast findings. 2. Recommend 6 month follow-up Limited left breast and axillary ultrasound BI-RADS category 3, probably benign findings. Reviewed, dictated and finalized at location A. IMPRESSION: 1. Probable benign left breast findings. 2. Recommend 6 month follow-up Limited left breast and axillary ultrasound BI-RADS category 3, probably benign findings.
--- OUTSIDE RECORDS SUMMARY | 2024-08-31 12:37 | XMS_ITS | Encounter Summary ---
Author Organization [facility] Address [facility] [place] [address] Care Team Providers Care Assistant Track And Field Coach Name Role Phone Cooper Suazo MD Primary Care Provider [phone]- [phone] Matias Betancur MD Unavailable [phone] Encounter Details Date Type Department Care Team (Late st Contact Info) Description 07/15/2022 [employer] Message Enc [facility] Multispecialty Care - [facility] [address] [facility], [address] [place] [id number] Hilary Smith APRN [address] [facility] [address] [place] [address] medications Social History Tobacco Use Types Packs/Day [...] Coronavirus/COVID-19? No / Unsure 07/11/2022 11:22 AM TIMBER SPOTTER documented as of this encounter Plan of Treatment Upcoming Encounters Date Type Department Care Team (Late st Contact Info) Description 11/16/2024 10:30 AM CDT Office Visit [facility] THREE [facility], [address] [place] [address] Dwayne Luis MD Three [facility]. [address] [place] [address] 12/14/2024 2:40 PM CDT Office Visit [facility] Multispecialty Care - [facility] [address] [facility], [address] [place] [address] Herman Barajas MD 3 [place] [address] documented as of this encounter Visit Diagnoses Not on filedocumented in this encounter Care Teams Assistant Track And Field Coach Relationship Specialty Start Date End Date Cooper Suazo MD PCP - General FAMILY PRACTICE 10/17/21 Matias Betancur MD [address] [place] [address] Surgeon NEUROLOGICAL SURGERY 06/20/22 documented as of this encounter
--- OUTSIDE RECORDS SUMMARY | 2024-08-31 12:37 | XMS_ITS ---
Author Organization [facility] samuel Address [address] [facility] [address] [place] [address] Care Team Providers Care Wheelchair Driver Name Role Phone Gabriele HUIZAR, Cooper Primary Care Provider Annabel Rodriguez Unavailable [phone] REASON FOR VISIT modifier Encounters Encounter Location Date Provider Diagnosis [facility] [address] [facility] [facility] [address] [place] [address] 03/22/2024 Annabel Soto Plan Of Treatment Next Appt Details Provider Name:Annabel Soto, 09/14 11:45:00 AM, [address] [facility] [address], [place], [address], Progress Notes * SRIDHAR MitchellJesseB:1955 (68 yo F)Acc No.[id number]:03/22/2024 Patient: Liudmila COLEMAN :1955 A ge:68 Y S ex:Female Address:[address] [place], [address] * true * Date: Generated for Printi ng/Faxing/eTransmitting on: 0 08/31/2024 12:37 PM CDT
--- OUTSIDE RECORDS SUMMARY | 2024-08-31 12:37 | XMS_ITS | Encounter Summary ---
Author Organization [facility] Address [facility] [place] [address] Care Team Providers Care Physician Practice Market Manager Name Role Phone Cooper Suazo MD Primary Care Provider [phone] Matias Betancur MD Unavailable [phone] Reason for Visit * Reason Onset Date Comments Results 2024 Encounter Details Date Type Department Care Team (Latest Contact Info) Description 2024 Results Follow-Up [facility] Multispecialty Care - [facility] [address] [facility], [address] [place] [phone] Herman Barajas MD [address] [place] [address] MRI BRAIN WWO CON, MRI LUMB SPINE WO CON Social History Tobacco Use Types Packs/Day Years Used Date Smoking Tobacco: Never Passive Smoke Exposure: Never Smokeless Tobacco: Never Alcohol Use Standard Drinks/Week Comments Never 0 (1 standard drink = 0.6 oz pur e alcohol) very rare [facility] Utilities Answer Date Recorded In the past 12 months has e electric, gas, oil, or water company [...] any time in the past 12 m [facility], were you homeless or living in a [place] health care facility (including now)? No 12/28/2023 Comments No Sex [...] AM CDT Jalyn Marmolejo RN Active * Are you blind or do you have serious difficulty seeing, even when wearing glasses? Answer Date of Assessment Author Status No 12/28/2023 12:50 AM Jalyn Vega RN Active * Do you have serious difficulty walking or climbing stairs? Answer Date of Assessment Author Status Yes 12/28/2023 12:50 AM Jalyn Vega RN Active * Do you have difficulty dressing or bathing? Answer Date of Assessment Author Status Yes 12/28/2023 12:50 AM SHANNONT Jalyn Marmolejo RN Active * Because of a physical, mental, or emotional condition, do you have difficulty doing errands alone such as visiting a doctor's office or shopping? Answer Date of Assessment Author Status No 12/28/2023 12:50 AM Jalyn Vega RN Active documented as of this encounter Mental Status * Because of a physical, mental, or emotional condition, do you have serious difficulty concentrating, remembering, or making decisions? Answer Entry Date Author Status No 12/28/2023 12:50 AM Jalyn Vega RN Active documented in this encounter Progress Notes * Carolin Ordonez MA - 08/30/2024 9:09 AM CDT LVM to call for results * Carolin Ordonez MA - 08/30/2024 9:09 AM CDT ----- Message from Dr. Herman Barajas sent at 08/28/2024 9:28 PM CDT ----- Please let her know MRI of the lumbar spine shows arthritis causing nerve impingement. For this I will put a referral to the pain specialist. ----- Message ----- From: Leora [id number] Sent: 08/24/2024 5:33 PM CDT To: Herman Barajas MD * Coleen Cartagena MA - 2024 11:06 AM CDT Called and informed patient of results. She v/u * Coleen Cartagena MA - 2024 11:06 AM CDT ----- Message from Dr. Herman Barajas sent at 2024 1:12 AM CDT ----- Please let her know MRI of the brain was normal ----- Message ----- From: User, [id number] Sent: 08/24/2024 5:33 PM CDT To: Herman Barajas MD documented in this encounter Plan of Treatment Upcoming Encounters Date Type Department Care Team (Late st Contact Info) Description 11/16/2024 10:30 AM CDT Office Visit [facility] THREE [facility], [address] [place] [address] Dwayne Luis MD Three [facility]. [address] [place], [place] [address] 12/14/2024 2:40 PM CDT Office Visit [facility] Multispecialty Care - [facility] [address] [facility], [address] [place] [phone] Herman Barajas MD [address] [place], [place] [id number] documented as of this encounter Goals Goal Patient Goal Type Associated Problems Recent Progress Patient-Stated? Author Family - family caregiver with be involved in care transitions and discharge planning Lifestyle No Orville Lares, RN documented as of this encounter Visit Diagnoses Not on filedocumented in this encounter Care Teams Physician Practice Market Manager Relationship Specialty Start Date End Date Cooper Suazo MD PCP - General FAMILY PRACTICE 10/17/21 Matias Betancur MD [address] [place] [address] Surgeon NEUROLOGICAL SURGERY 06/20/22 documented as of this encounter
--- OUTSIDE RECORDS SUMMARY | 2024-08-31 12:37 | XMS_ITS | Encounter Summary ---
Author Organization [facility] Address [address] [place] [address] Care Team Providers Care Market Superintendent Name Role Phone Cooper Suazo MD Primary Care Provider [phone] Matias Betancur MD Unavailable [phone] Encounter Details Date Type Department Care Team (Late st Contact Info) Description 01/19/2024 [employer] Message Enc [facility] Orthopedic & Sports Medicine - [place] [address] [employer], [facility] Provider apt Social History Tobacco Use Types Packs/Day Years Used Date Smoking Tobacco: Never Smokeless Tobacco: Never Alcohol Use Standard Drinks/Week Comments Never 0 (1 standard drink = 0.6 oz pur e alcohol) very rare [facility] Utilities Answer Date Recorded In the past 12 months has [facility] [employer], gas, oil, or water [employer] threatened to shut off services in your [...] any time in the past [address] [facility], were you homeless or living in a halfway (including now)? No 12/28/2023 Comments No Sex [...] Date Type Department Care Team (Late st [facility]) Description 11/16/2024 10:30 AM CDT Office Visit [facility], [address] [place] [address] Dwayne Luis MD [facility]. [address] [place] [address] 12/14/2024 2:40 PM CDT Office Visit [facility] Multispecialty Care - [facility] 3 [facility], [address] [place] [address] Herman Barajas MD [address] [place] [address] documented as of this encounter Goals Goal Patient Goal Type Associated Problems Recent Progress Patient-Stated? Author Family - family caregiver with be involved in care transitions and discharge planning Lifestyle No Orville Lares RN documented as of this encounter Visit Diagnoses Not on filedocumented in this encounter Care Teams Market Superintendent Relationship Specialty Start Date End Date Cooper Suazo MD PCP - General FAMILY PRACTICE 10/17/21 Matias Betancur MD [address] [place], [place] [phone] Surgeon NEUROLOGICAL SURGERY 06/20/22 documented as of this encounter
--- OUTSIDE RECORDS SUMMARY | 2024-08-31 12:37 | XMS_ITS | Encounter Summary ---
Author Organization [facility] Address [address] [place] [address] Care Team Providers Care Brass Cutter Name Role Phone Cooper Suazo MD Primary Care Provider [phone] Matias Betancur MD Unavailable [phone] Encounter Details Date Type Department Care Team (Late st Contact Info) Description 01/20/2024 [employer] Message Enc [facility] Orthopedic & Sports Medicine [address] [address] [address], [facility] Provider questions Social History Tobacco Use Types Packs/Day Years Used Date Smoking Tobacco: Never Smokeless Tobacco: Never Alcohol Use Standard Drinks/Week Comments Never 0 (1 standard drink = 0.6 oz pur e alcohol) very rare [facility] Utilities Answer Date Recorded In the past [address] [facility] [employer], gas, oil, or water [employer] threatened to shut off services in your [...] any time in the past 12 m [facility], were you homeless or [...] Date Type Department Care Team (Late [facility]) Description 11/16/2024 10:30 AM CDT Office Visit [facility], [address] [place] [address] Dwayne Luis MD [facility]. [address] [place] [address] 12/14/2024 2:40 PM CDT Office Visit [facility] Multispecialty Care - [facility] 3 [facility], [address] [place] [address] Herman Barajas MD [address] [place] [address] documented as of this encounter Goals Goal Patient Goal Type Associated Problems Recent Progress Patient-Stated? Author Family - family caregiver with be involved in care transitions and discharge planning Lifestyle No Orville Lares RN documented as of this encounter Visit Diagnoses Not on filedocumented in this encounter Care Teams Brass Cutter Relationship Specialty Start Date End Date Cooper Suazo MD PCP - General FAMILY PRACTICE 10/17/21 Matias Betancur MD [address] [place], [place] [phone] Surgeon NEUROLOGICAL SURGERY 06/20/22 documented as of this encounter
--- OUTSIDE RECORDS SUMMARY | 2024-08-31 12:37 | XMS_ITS | Encounter Summary ---
Author Organization [facility] Address [address] [place] [address] Care Team Providers Care Bullet Assembly Press Operator Name Role Phone Cooper Suazo MD Primary Care Provider [phone] Matias Betancur MD Unavailable [phone] Encounter Details Date Type Department Care Team (Late Contact Info) Description 04/05/2022 [facility] [address] Derik Paul MA Social History Tobacco Use [...] Coronavirus/COVID-19? No / Unsure 04/03/2022 9:58 AM OPTIMIZATION CONSULTANT documented as of this encounter Plan of Treatment Upcoming Encounters Date Type Department Care Team (Late st Contact Info) Description 11/16/2024 10:30 AM CDT [facility] [address] [address] Dwayne Luis MD [address] [facility] [address] [place] [address] 12/14/2024 2:40 PM CDT Office Visit [facility] Multispecialty Care - [facility] [address] [facility], [address] [place] [phone] Herman Barajas MD [address] [facility] [place] [address] documented as of this encounter Procedures Procedure [...] on filedocumented in this encounter Care Teams Bullet Assembly Press Operator Relationship Specialty Start Date End Date Cooper Suazo MD PCP - General FAMILY PRACTICE 10/17/21 Matias Betancur MD [address] [place] [address] Surgeon NEUROLOGICAL SURGERY 06/20/22 documented as of this encounter
--- OUTSIDE RECORDS SUMMARY | 2024-08-31 12:37 | XMS_ITS ---
Author Organization [facility] samuel Address [address] [facility] [facility] [address] [place] [address] Care Team Providers Care Door Opener Name Role Phone Gabriele HUIZAR, Cooper Primary Care Provider Zandra SandraClaug Unavailable [phone] Allergies Allergen (clinical drug ingredient) Drug/Non Drug [...] JOSÉ C take 1 daily *Reorder from [employer] for eRx and Interaction Alerts* Active traZODone [...] oral route once oral 1 *Reorder from [employer] for eRx and Interaction Alerts* Active Metamucil [...] oral route once oral 1 *Reorder from [employer] for eRx and Interaction Alerts* Active Vital Signs Temperature 98.0 degrees Fahrenheit 06/15/19 25 Blood pressure systolic 112 mm Hg 06/15/19 25 Blood pressure diastolic 70 mm Hg 025 Heart Rate 66 /min 06/15/2024 Height 66 in 06/15/2024 Weight 158.8 lbs 06/15/2024 BMI 25.63 kg/m2 06/15/2024 Oximetry 97 % 06/15/2024 Height-cm 167.64 cm 06/15/2024 Weight-kg 72.02 kg 06/15/2024 Encounters Encounter Location Date Provider Diagnosis [facility] [address] [facility] [address] [place] [address] 06/15/2024 Annabel Sandra Rheumatoid arthritis without rheumatoid [...] Name:Annabel Charles, 09/14 11:45:00 AM, [address] [facility] [facility] [address], [place], [address], Progress Notes * Mitchell WALLERaDOB:1955 (68 yo F)Acc No.[id number]:06/15/2024 Progress Notes Patient: Liudmila COLEMAN Provider: Feli SANDRA MD :1955 A ge:68 Y S ex:Female Date:06/15/2024 Address:[address] [place] [address] Pcp:Cooper Suazo MD Subjective: * Chief Complaints: [...] both breasts with reduction of both areolae; [id number] cuff repair; 7990-92-39Buinwpfcmncw; [id number] hip fracture and surgery * Hospitalization/Major Diagno [...] 1 , Notes to Pharmacist: *Reorder from [facility] for eRx and Interaction Alerts*cetirizine take 1 by oral route once oral 1 , Notes to Pharmacist: *Reorder from [facility] for eRx and Interaction Alerts*FLUoxetine HCl 20 [...] daily , Notes to Pharmacist: *Reorder from [facility] for eRx and Interaction Alerts*traZODone HCl 100 [...] 1 , Notes to Pharmacist: *Reorder from [facility] for eRx and Interaction Alerts*Taking cetirizine take 1 by oral route once oral 1 , Notes to Pharmacist: *Reorder from [facility] for eRx and Interaction Alerts*Taking FLUoxetine HCl [...] daily , Notes to Pharmacist: *Reorder from [facility] for eRx and Interaction Alerts*Taking traZODone HCl [...] Months * Billing Information: * Visit Code: 36679 Office Visit, Est Pt., Level 4. * Procedure Codes: * IC WORKER SUPERVISOR Sign off status: Completed true * Provider: Feli SANDRA MD Date: 0 06/15/2024 Generated for Juan Luis narayanan/Kaya/Dinhitting on: 0 08/31/2024 12:37 PM CDT History and Physical Notes * HPI [...]
--- OUTSIDE RECORDS SUMMARY | 2024-08-31 12:37 | XMS_ITS | Encounter Summary ---
Author Organization [facility] Address Formerly [facility] [place] [address] Care Team Providers Care Machine Quilt Stuffer Name Role Phone Cooper Suazo MD Primary Care Provider [phone] Matias Betancur MD Unavailable [phone] Encounter Details Date Type Department Care Team (Late st Contact Info) Description 08/16/2024 [facility] - [facility] [address] [facility], [address] [place] [address] [facility], [facility] Provider MRA Results Social History Tobacco Use Types Packs/Day Years Used Date Smoking Tobacco: Never Passive Smoke Exposure: Never Smokeless Tobacco: Never Alcohol Use Standard Drinks/Week Comments Never 0 (1 standard drink = 0.6 oz pur e alcohol) very rare [facility] Utilities Answer Date Recorded In the past 12 months has [facility] [employer], oil, or water [employer] threatened to shut off services in your [...] any time in the past 12 m [facility], were you homeless or living in a long-term (including now)? No 12/28/2023 Comments No Sex [...] AM CDT Jalyn Marmolejo RN Active * Do you have difficulty [...] Date Author Status No 12/28/2023 12:50 AM SHANNONT Jalyn Marmolejo RN Active documented in this encounter Plan of Treatment Upcoming Encounters Date Type Department Care Team (Late [facility]) Description 11/16/2024 10:30 AM CDT Office Visit [facility] THREE [facility], [address] [place] [address] Dwayne Luis MD Three [facility]. [address] [place] [address] 12/14/2024 2:40 PM CDT [facility] - [facility] [address] [facility], [address] [place] [id number] Herman Barajas MD [address] [place] [address] documented as of this encounter Goals Goal Patient Goal Type Associated Problems Recent Progress Patient-Stated? Author Family - family caregiver with be involved in care transitions and discharge planning Lifestyle No Orville Lares RN documented as of this encounter Visit Diagnoses Not on filedocumented in this encounter Care Teams Machine Quilt Stuffer Relationship Specialty Start Date End Date Cooper Suazo MD PCP - General FAMILY PRACTICE 10/17/21 Matias Betancur MD [address] [place] [address] Surgeon NEUROLOGICAL SURGERY 06/20/22 documented as of this encounter
--- OUTSIDE RECORDS SUMMARY | 2024-08-31 12:37 | XMS_ITS | Encounter Summary ---
Author Organization [facility] Address [address] [place] [address] Care Team Providers Care Cold Press Operator Name Role Phone Cooper Suazo MD Primary Care Provider [phone] Matias Betancur MD Unavailable [phone] Encounter Details Date Type Department Care Team (Late st Contact Info) Description 02/05/2022 Hospital Orders Only [facility] Head Of Loss Prevention [address] [place] [address] Daren See MD,PHD Social History Tobacco Use [...] AM CDT documented as of this encounter Functional Status * Calculated C-SSRS Risk Score (Lifetime/Recent) Answer Date of Assessment Author Status No Risk Indicated 02/06/2022 8:[address] nafisa Whitney RN Active * [place] Suicide Severity Rating Scale (Screener/Recent Self-Report) Question Answer Date of Assessment Author Status 1. Wish to be (Past 1 Month) No 02/06/2022 8:42 AM CDT Radha Whitney RN A ctive 2. Non-Specific Active Suicidal Thoughts (Past 1 Month) No 02/06/2022 8:42 AM CDT Radha Whitney RN A ctive 6. Suicidal Behavior (Lifetime) No 02/06/2022 8:42 AM CDT Radha Whitney RN A ctive documented as of this encounter Plan of Treatment Upcoming Encounters Date Type Department Care Team (Late st Contact Info) Description 11/16/2024 10:30 AM CDT Office Visit [facility] [address] [facility], [address] [place] [address] Dwayne Luis MD Three [facility]. [address] [place] [address] 12/14/2024 2:40 PM CDT Office Visit [facility] Multispecialty Care - [facility] [address] [facility], [address] [place] [address] Herman Barajas MD [address] [facility] [place] [address] documented as of this encounter Visit Diagnoses Not on filedocumented in this encounter Care Teams Cold Press Operator Relationship Specialty Start Date End Date Cooper Suazo MD PCP - General FAMILY PRACTICE 10/17/21 Matias Betancur MD [address] [facility] [place] [address] Surgeon NEUROLOGICAL SURGERY 06/20/22 documented as of this encounter
--- OUTSIDE RECORDS SUMMARY | 2024-08-31 12:37 | XMS_ITS | Encounter Summary ---
Author Organization [facility] Address [address] [place] [address] Care Team Providers Care Crane Hooker Name Role Phone Cooper Suazo MD Primary Care Provider [phone] Matias Betancur MD Unavailable [phone] Encounter Details Date Type Department Care Team (Late st Contact Info) Description 08/21/2023 MyChart Message Enc [facility] [place], [place] [id number] Chrissy Sultana MD [facility] [address] [place] [address] Appt on August 24 Social [...] 11/16/2024 10:30 AM CDT [facility] [address] [place], [place] [id number] Dwayne Luis MD Three [facility]. [address] [place] [address] 12/14/2024 2:40 PM CDT Office Visit [facility] Group Multispecialty Care - [facility] [address] [facility], [address] [place] [id number] Herman Barajas MD [address] [place] [address] documented as of this encounter Visit Diagnoses Not on filedocumented in this encounter Care Teams Crane Hooker Relationship Specialty Start Date End Date Cooper Suazo MD PCP - General FAMILY PRACTICE 10/17/21 Matias Betancur MD [address] [place] [address] Surgeon NEUROLOGICAL SURGERY 06/20/22 documented as of this encounter
--- OUTSIDE RECORDS SUMMARY | 2024-08-31 12:38 | XMS_ITS | Clinical Summary ---
Author Organization [facility] Address [address] [place] [address] Care Team Providers Care Talent Acquisition Associate Name Role Phone Cooper Suazo MD Primary Care Provider [phone] Source Comments [facility] [employer],non-owned Affiliates and Associated Physician Practices is amultiple site organization consisting of ambulatory clinics and hospital sitesin [place], [place], [place] and [place]. This disclosure is being madepursuant to the Care Everywhere program and may not contain all information available regarding this patient. 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
--- OUTSIDE RECORDS SUMMARY | 2024-08-31 12:38 | XMS_ITS | Clinical Summary ---
Author Organization [facility] Address [address] [place] [address] Care Team Providers Care Title Examiner Name Role Phone Cooper Suazo MD Primary Care Provider [phone] Matias Betancur MD Unavailable [phone] Allergies No known active allergies Medications gabapentin (NEURONTIN) 300 MG capsule Take 1 capsule (300 mg total) by mouth 4 (four) times daily. Active traZODone (DESYREL) 100 MG tablet Take 1 tablet (100 mg total) by mouth nightly at bedtime. Active FLUoxetine (PROZAC) 20 MG capsule Take 1 capsule (20 mg total) by mouth daily. Active hydroxychloroqui ne (PLAQUENIL) 200 MG tablet Take 1 tablet (200 mg total) by mouth 2 (two) times daily. Active mulitvitamin (THERA) tablet Take 1 tablet by mouth daily. Active Bioflavonoid Products (JOSÉ C OR) Take 1,000 mg by mouth daily. Active Calcium Carb-Cholecalcif jose j (CALCIUM/VITAMIN D OR) Take 1 tablet by mouth daily. Active probiotic (FLORAJEN3) Cap capsule Take 1 capsule by mouth nightly. Active docusate sodium (COLACE) 100 MG capsule Take 1 capsule (100 mg total) by mouth nightly. Active metFORMIN ER (GLUCOPHAGE-XR) 500 MG 24 hr tablet Take 1 tablet (500 mg total) by mouth daily with breakfast. 07/29/2022 Active Turmeric (QC TUMERIC COMPLEX) 500 MG Cap Take by mouth daily. Active Nutritional Supplements (FRUIT & VEGETABLE DAILY OR) Take by mouth daily. Active atorvastatin (LIPITOR) 20 MG tablet Take 1 tablet (20 mg total) by mouth nightly at bedtime. 30 tablet 01/01/2024 Active ferrous sulfate EC 324 (65 Fe) MG tablet Take 1 tablet (324 mg total) by mouth daily with breakfast. 30 tablet 01/02/2024 Active ACETAMINOPHEN EXTRA STRENGTH 500 MG tablet Take 1 tablet (500 mg total) by mouth every 6 (six) hours as needed. 01/14/2024 Active Psyllium (METAMUCIL 4 IN 1 FIBER) 55.6 % Powder take 1 by oral route once Oral 1 Active lisinopril (PRINIVIL) 10 MG tablet 01/01/2024 Active Active Problems Problem Noted Date Diagnosed Date Closed displaced intertrocha nteric fracture of left femur, initial encounter ([facility]) 12/28/2023 Chronic systolic congestive heart failure ([facility]) 03/21/2023 Overview (03/21/2023): EF 45-50% ACC/AHA Stage B with NYHA class II symptoms Schmorl's nodes of lumbar region 10/09/2022 Facet hypertrophy of lumbar region 10/09/2022 Myofascial pain 08/28/2022 Acute right-sided low back pain without sciatica 08/28/2022 S/P kyphoplasty 07/11/2022 Midline low back pain withou t sciatica, unspecified chronicity 07/11/2022 Myelopathy ([facility]) 01/19/2022 Syncope 01/07/2022 Essential (primary) hypertension 01/07/2022 T12 burst fracture ([facility]) 12/18/2021 Abnormal MRI, spinal cord 12/18/2021 Gait disturbance 12/18/2021 Resolved Problems Problem Noted Date Diagnosed Date Resolved Date Hip fracture ([facility]) 12/28/2023 12/28/2023 Encounters Date Type Department Care Team Description 08/28/2024 Orders Only [facility] Multispecialty [facility] - [address], [address] [place] [address] Herman Barajas MD 2024 Results Follow-Up [facility] [address], [address] [place] [address] Herman Barajas MD MRI BRAIN WWO CON, MRI LUMB SPINE WO CON 08/24/2024 1:59 PM CDT - 08/24/2024 11:59 PM CDT [facility] [address] [place] [address] Herman Barajas MD Discharge Disposition: Home or Self Care (Routine Discharge) 08/24/2024 Travel 08/16/2024 Telephone [facility] [address], [address] [place] [address] Herman Barajas MD Results 08/16/2024 MyCsonyt Message Enc [facility] [address], [address] [place] [address] [facility] Provider MRA Results 08/12/2024 12:13 PM CDT - 08/12/2024 11:59 PM CDT [facility] [address] [place] [address] Herman Barajas MD Discharge Disposition: Home or Self Care (Routine Discharge) 08/12/2024 Travel 07/26/2024 3:00 PM CDT Office Visit [facility] [address], [address] [place] [address] Herman Barajas MD Follow Up (Pt. Fell and broke her left hip back in December 2023) 07/26/2024 Travel 06/17/2024 Scan [facility] SRVCS Scanned, Doc Med Group from Last 3 Months Immunizations Immunization Administration Dates Next Due Influenza (Generic) 02/09/2020 [...] 0.6 oz pur e alcohol) very rare [facility] Utilities Answer Date Recorded In the past 12 months has e [employer] [place], gas, oil, or water imagine threatened to shut off services in your [...] any time in the past 12 m [facility], were you homeless or [...] 11/16/2024 10:30 AM CDT [facility] [address] [place] [address] Dwayne Luis MD [facility]. [address] [place] [address] 12/14/2024 2:40 PM CDT Office Visit [facility] Multispec[facility] - [facility] [address], [address] [place] [id number] Herman Barajas MD [address] [place] [address] Health Maintenance Due Date Last Done Comments Colorectal Cancer Screening Colonoscopy (10 Years) 1956 Hepatitis C 1974 Mammogram Screening 1996 RSV Immunization or 60+ Years (1 - Risk 60-74 years 1-dose series) 2016 Pneumococcal Vaccine: 50+ Years (2 of 2 - PPSV23) 04/05/2020 02/09/2020 Annual Medicare Wellness Visit 2021 Dexa Scan (General) 2021 ASCVD LDL 02/05/2023 02/05/2022 COVID-19 Vaccine (4 - 2023-2 5 season) 2024 01/03/2021, 07/15/2020, 06/24/2020 PHQ-2 (Physician [place]) 05/12/2024 12/22/2023 DTaP, Tdap and Td Vaccines [...] Lares, RN Medical Devices Implanted Type Area Window Installation Subcontractor Device Identifier Shelf Expiration Date Model / Serial / Lot Nail 10mm 170mm Hip Trochanter Gamma3 Intramedullary 125d Kit Titanium Sterile - [id number] Implanted:Qty: 1 on 12/29/2023 by Luis Miguel Carney MD at [facility] Nail Left: Hip [employer] [id number] 09/08/2028 [id number] / / [id number] Screw Gage Lag 10.5mm X 95mm - [id number] Implanted:Qty: 1 on 12/29/2023 by Luis Miguel Carney MD at [facility] Screw Left: Hip [employer] [id number] 03/11/2028 0514-2458 S / / [id number] Screw Gage Locking 5mm X 35mm - [id number] Implanted:Qty: 1 on 12/29/2023 by Luis Miguel Carney MD at [facility] Screw Left: Hip [employer] [id number] 03/11/2028 [id number] S / / [id number] Omnicurve 11g 15mm Fracture Kit Implanted:Qty: 1 on 07/02/2022 by Matias Betancur MD at [facility] N/A: Back [id number] 04/09/2023 1032-115- 000 / / [id number] Avaflex Curved Needle Implanted:Qty: 1 on 07/02/2022 by Matias Betancur MD at [facility] N/A: Back [id number] 02/07/2024 1025-011- 500 / / [id number] Procedures Procedure Name Priority Date/Time Associated Diagnosis Comments MRI BRAIN WWO CON Routine 08/24/2024 2:5 9 PM CDT TIA (transient ischemic attack) MRI LUMB SPINE WO CON Routine 08/24/2024 2:36 PM CDT Lumbosacral radiculopathy MRA NECK WWO CON Routine 08/12/2024 1:23 PM CDT TIA (transient ischemic attack) MRA HEAD WWO CON Routine 08/12/2024 1:12 PM CDT TIA (transient ischemic attack) MRI THOR SPINE WWO CON Routine 06/23/2023 10:46 AM [employer] Cervical myelopathy Thoracic myelopathy LIPID PANEL Routine 02/05/2022 9:50 AM CDT DODGE (dyspnea on exertion) Abnormal stress test Hyperlipidemia, mixed from Last 3 Months or Most Recently Relevant to Health Maintenance Results * MRI BRAIN [facility] (08/24/2024 2:59 PM CDT) Anatomical Region Laterality Modality Head Magnetic Resonan ce 08/24/2024 4:48 PM CDT Impressions 08/24/2024 5:32 PM CDT IMPRESSION: 1. No acute intracranial abnormality. 2. Mild chronic small vessel ischemic change. Referred By: HERMAN BARAJAS Interpreted By: Darren Iniguez MD, 08/24/2024 4:48 PM Narrative 08/24/2024 5:32 PM CDT [address] [address] EXAMINATION: MRI BRAIN [facility], 08/24/2024 TECHNIQUE: Multiplanar multisequence magnetic resonance images of the brain were obtained before and after the administration of 14 mL of Dotarem injected through the IV, without evidence of adverse reaction. HISTORY: Stroke COMPARISON: MRI brain 03/31/2022 FINDINGS: There is no restricted diffusion to suggest an acute infarction. There is no hemorrhagic focus of susceptibility. Few scattered subcortical and periventricular white matter T2 FLAIR hyperintensities that are nonspecific but most commonly seen in setting of chronic small vessel ischemic change. No abnormally enhancing intracranial parenchymal or mass. The sella, callosal, pineal, and craniovertebral junction regions appear within normal limits. There is no extra-axial fluid collection. The ventricles are normal in size. The basal cisterns appear normal. The proximal intracranial arterial flow voids have a normal appearance. Orbital contents appear normal. Paranasal sinuses are otherwise well-aerated. Mucous retention cyst within the right maxillary sinus. Mastoid air cells are well-aerated. Procedure Note Darren Iniguez MD - 08/24/2024 [address] [place] [address] EXAMINATION: MRI BRAIN WWO CON, 08/24/2024 TECHNIQUE: Multiplanar multisequence magnetic resonance images of thebrain were obtained before and after the administration of 14 mL ofDotarem injected through the IV, without evidence of adverse reaction. HISTORY: Stroke COMPARISON: MRI brain 03/31/2022 FINDINGS: There is no restricted diffusion to suggest an acute infarction.There is no hemorrhagic focus of susceptibility. Few scatteredsubcortical and periventricular white matter T2 FLAIR hyperintensitiesthat are nonspecific but most commonly seen in setting of chronic smallvessel ischemic change. No abnormally enhancing intracranial parenchymalor mass. The sella, callosal, pineal, and craniovertebral junctionregions appear within normal limits. There is no extra-axial fluid collection. The ventricles are normal insize. The basal cisterns appear normal. The proximal intracranialarterial flow voids have a normal appearance. Orbital contents appearnormal. Paranasal sinuses are otherwise well-aerated. Mucous retentioncyst within the right maxillary sinus. Mastoid air cells arewell-aerated. IMPRESSION: 1. No acute intracranial abnormality. 2. Mild chronic small vessel ischemic change. Referred By: HERMAN BARAJAS Interpreted By: Darren Iniguez MD, 08/24/2024 4:48 PM us Herman Barajas MD MRI Final Res ult * MRI LUMB SPINE WO CON (08/24/2024 2:36 PM CDT) Anatomical Region Laterality Modality Spine Magnetic Resonan ce 08/27/2024 9:57 PM CDT Impressions 08/27/2024 10:01 PM CDT IMPRESSION: 1. Chronic anterior wedge compression fracture of T12 with prior vertebroplasty. No acute osseous abnormality or significant change compared to the prior lumbar spine MRI 09/17/2022. 2. Mild neural foraminal stenosis on the left at L3/L4 and L4/L5 and L5/S1 and mild neural foraminal stenosis on the right at L3/L4 and L4/L5. 3. No significant lumbar central canal stenosis. Referred By: HERMAN BARAJAS Interpreted By: Darren Gordillo MD, 08/27/2024 9:57 PM Narrative 08/27/2024 10:01 PM CDT [address] [place] [address] EXAMINATION:MRI lumbar spine without contrast 08/24/24 INDICATION:Lumbosacral radiculopathy, lower back pain, fall 2 years ago, history of T12 fracture TECHNIQUE: Multiplanar multisequence or imaging lumbar spine was performed without intravenous contrast. COMPARISON: MRI lumbar spine 09/27/2022 FINDINGS: The last fully formed disc space is presumed represent L5/S1. There is a chronic anterior wedge compression fracture of T12 depression of superior endplate and 30% loss of height, unchanged. There evidence been prior vertebroplasty at the T12 level. The posterior wall is intact with no retropulsed fragments. Bone marrow signal is within normal limits. No acute fracture or dislocation. No ligamentous discontinuity or signal abnormality. There is a large Schmorl's node within the superior endplate of L4 to the left of midline, unchanged. No ligamentous discontinuity or signal abnormality The conus terminates at the mid L1 level and is unremarkable in contour and signal. No paraspinal mass or fluid collection. The visualized abdominal aorta is unremarkable contour. The upper sacroiliac joint spaces are unremarkable T11/T12: Disc space narrowing and facet arthropathy T12/L1: Negative L1/L2: Negative L2/L3: Negative L3/L4: Disc space narrowing disc bulging and facet arthropathy causing slight effacement of ventral thecal sac and mild bilateral neural foraminal stenosis, unchanged L4/L5: Mild disc bulging and facet arthropathy causing mild bilateral neural foraminal stenosis, unchanged L5/S1: Facet arthropathy causing mild left neural foraminal stenosis, unchanged. Procedure Note Darren Gordillo MD - 08/27/2024 [address] [place] [address] EXAMINATION:MRI lumbar spine without contrast 08/24/24 INDICATION:Lumbosacral radiculopathy, lower back pain, fall 2 years ago,history of T12 fracture TECHNIQUE: Multiplanar multisequence or imaging lumbar spine was performedwithout intravenous contrast. COMPARISON: MRI lumbar spine 09/27/2022 FINDINGS: The last fully formed disc space is presumed represent L5/S1.There is a chronic anterior wedge compression fracture of T12 depressionof superior endplate and 30% loss of height, unchanged. There evidencebeen prior vertebroplasty at the T12 level. The posterior wall is intactwith no retropulsed fragments. Bone marrow signal is within normal limits. No acute fracture ordislocation. No ligamentous discontinuity or signal abnormality. Thereis a large Schmorl's node within the superior endplate of L4 to the left of midline, unchanged. No ligamentous discontinuity orsignal abnormality The conus terminates at the mid L1 level and is unremarkable in contourand signal. No paraspinal mass or fluid collection. The visualizedabdominal aorta is unremarkable contour. The upper sacroiliac jointspaces are unremarkable T11/T12: Disc space narrowing and facet arthropathy T12/L1: Negative L1/L2: Negative L2/L3: Negative L3/L4: Disc space narrowing disc bulging and facet arthropathy causingslight effacement of ventral thecal sac and mild bilateral neuralforaminal stenosis, unchanged L4/L5: Mild disc bulging and facet arthropathy causing mild bilateralneural foraminal stenosis, unchanged L5/S1: Facet arthropathy causing mild left neural foraminal stenosis,unchanged. IMPRESSION: 1. Chronic anterior wedge compression fracture of T12 with priorvertebroplasty. No acute osseous abnormality or significant changecompared to the prior lumbar spine MRI 09/17/2022. 2. Mild neural foraminal stenosis on the left at L3/L4 and L4/L5 andL5/S1 and mild neural foraminal stenosis on the right at L3/L4 andL4/L5. 3. No significant lumbar central canal stenosis. Referred By: HERMAN BARAJAS Interpreted By: Darren Gordillo MD, 08/27/2024 9:57 PM Herman Barajas MD MRI Final Res ult * MRA NECK WWO CON (08/12/2024 1:23 PM CDT) Anatomical Region Laterality Modality Neck Magnetic Resonan ce 08/13/2024 2:17 AM CDT Impressions 08/13/2024 2:48 AM CDT IMPRESSION: 1. No hemodynamically significant stenosis or aneurysm in the right or left common or cervical internal carotid arteries or in the intracranial vertebral arteries. 2. 2.5 mm infundibulum versus aneurysm near the junction of the anterior communicating artery with the A1 segment of left anterior cerebral artery. No hemodynamically significant stenosis and no other aneurysm in the major arteries of the [place]. 3. 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 4. Mild tapering of the intracranial right vertebral artery distal to the origin of the right posterior inferior cerebellar artery, a developmental variant. Referred By: HERMAN BARAJAS Interpreted By: Flavia Olson MD, 08/13/2024 2:17 AM Narrative 08/13/2024 2:48 AM CDT [address] [place] [address] EXAMINATION: MRA Neck EXAMINATION: 1. MRA Neck With and Without Intravenous Contrast, 3D time of flight with 2-D and 3-D MIP reconstructions. 2. MRA Head With and Without Intravenous Contrast, 3-D time of flight technique with 2-D and 3-D MIP reconstruction images. Following the noncontrast images, 14 mL Dotarem was administered intravenously for the postcontrast MRA neck and MRA head exams. INDICATION: TIA, feeling off balance, history of old lacunar infarcts. COMPARISON: CT head without contrast 12/27/2023. MRA NECK FINDINGS: No hemodynamically significant stenosis or aneurysm is seen in the imaged right or left common or cervical internal carotid arteries, or in the imaged bilateral cervical and included intracranial vertebral arteries. The left vertebral artery is dominant. MRA HEAD FINDINGS: Mild tapering of the intracranial right vertebral artery distal to the origin of the right posterior inferior cerebellar artery, a developmental variant. 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 origin of the right posterior cerebral artery from the supraclinoid right internal carotid artery with developmental hypoplasia of the right P1 segment of the basilar tip, also developmental variant. There may be a tiny infundibulum versus tiny 2.5 mm aneurysm at the junction of the anterior communicating artery with the distal A1 segment of left anterior cerebral artery. Intracranial carotid arteries, major segments of bilateral anterior and middle cerebral arteries, and the anterior communicating arteries are patent without significant stenosis or aneurysm. Intracranial vertebral and basilar arteries, and bilateral superior cerebellar and posterior cerebral arteries are patent without significant stenosis or aneurysm. The left posterior communicating artery is not visualized on this exam. Procedure Note Flavia Olson MD - 08/13/[address] [address] EXAMINATION: MRA Neck EXAMINATION: 1. MRA Neck With and Without Intravenous Contrast, 3D time of flight with2-D and 3-D MIP reconstructions. 2. MRA Head With and Without Intravenous Contrast, 3-D time of flighttechnique with 2-D and 3-D MIP reconstruction images. Following the noncontrast images, 14 mL Dotarem was administeredintravenously for the postcontrast MRA neck and MRA head exams. INDICATION: TIA, feeling off balance, history of old lacunar infarcts. COMPARISON: CT head without contrast 12/27/2023. MRA NECK FINDINGS: No hemodynamically significant stenosis or aneurysm isseen in the imaged right or left common or cervical internal carotidarteries, or in the imaged bilateral cervical and included intracranialvertebral arteries. The left vertebral artery is dominant. MRA HEAD FINDINGS: Mild tapering of the intracranial right vertebralartery distal to the origin of the right posterior inferior cerebellarartery, a developmental variant. Mild developmental hypoplasia of [id number] of right anterior cerebral artery. origin of the rightposterior cerebral artery from the supraclinoid right internal carotidartery with developmental hypoplasia of the right P1 segment of thebasilar tip, also developmental variant. There may be a tiny infundibulumversus tiny 2.5 mm aneurysm at the junction of the anterior communicatingartery with the distal A1 segment of left anterior cerebral artery.Intracranial carotid arteries, major segments of bilateral anterior andmiddle cerebral arteries, and the anterior communicating arteries arepatent without significant stenosis or aneurysm. Intracranial vertebraland basilar arteries, and bilateral superior cerebellar and posteriorcerebral arteries are patent without significant stenosis or aneurysm.The left posterior communicating artery is not visualized on this exam. IMPRESSION: 1. No hemodynamically significant stenosis or aneurysm in the right orleft common or cervical internal carotid arteries or in the intracranialvertebral arteries. 2. 2.5 mm infundibulum versus aneurysm near the junction of the anteriorcommunicating artery with the A1 segment of left anterior cerebral artery.No hemodynamically significant stenosis and no other aneurysm in themajor arteries of the [place]. 3. 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 4. Mild tapering of the intracranial right vertebral artery distal to theorigin of the right posterior inferior cerebellar artery, a developmentalvariant. Referred By: HERMAN BARAJAS Interpreted By: Flavia Olson MD, 08/13/2024 2:17 AM us Herman Barajas MD MRI Final Res ult * MRA HEAD WWO CON (08/12/2024 1:12 PM CDT) Anatomical Region Laterality Modality Head Magnetic Resonan ce 08/13/2024 2:17 AM CDT Impressions 08/13/2024 2:48 AM CDT IMPRESSION: 1. No hemodynamically significant stenosis or aneurysm in the right or left common or cervical internal carotid arteries or in the intracranial vertebral arteries. 2. 2.5 mm infundibulum versus aneurysm near the junction of the anterior communicating artery with the A1 segment of left anterior cerebral artery. No hemodynamically significant stenosis and no other aneurysm in the major arteries of the [place]. 3. 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 4. Mild tapering of the intracranial right vertebral artery distal to the origin of the right posterior inferior cerebellar artery, a developmental variant. Referred By: HERMAN BARAJAS Interpreted By: Flavia Olson MD, 08/13/2024 2:17 AM Narrative 08/13/2024 2:[place] [address] EXAMINATION: MRA Neck EXAMINATION: 1. MRA Neck With and Without Intravenous Contrast, 3D time of flight with 2-D and 3-D MIP reconstructions. 2. MRA Head With and Without Intravenous Contrast, 3-D time of flight technique with 2-D and 3-D MIP reconstruction images. Following the noncontrast images, 14 mL Dotarem was administered intravenously for the postcontrast MRA neck and MRA head exams. INDICATION: TIA, feeling off balance, history of old lacunar infarcts. COMPARISON: CT head without contrast 12/27/2023. MRA NECK FINDINGS: No hemodynamically significant stenosis or aneurysm is seen in the imaged right or left common or cervical internal carotid arteries, or in the imaged bilateral cervical and included intracranial vertebral arteries. The left vertebral artery is dominant. MRA HEAD FINDINGS: Mild tapering of the intracranial right vertebral artery distal to the origin of the right posterior inferior cerebellar artery, a developmental variant. 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 origin of the right posterior cerebral artery from the supraclinoid right internal carotid artery with developmental hypoplasia of the right P1 segment of the basilar tip, also developmental variant. There may be a tiny infundibulum versus tiny 2.5 mm aneurysm at the junction of the anterior communicating artery with the distal A1 segment of left anterior cerebral artery. Intracranial carotid arteries, major segments of bilateral anterior and middle cerebral arteries, and the anterior communicating arteries are patent without significant stenosis or aneurysm. Intracranial vertebral and basilar arteries, and bilateral superior cerebellar and posterior cerebral arteries are patent without significant stenosis or aneurysm. The left posterior communicating artery is not visualized on this exam. Procedure Note Flavia Olson MD - 08/13/2024 [facility] [address] [place] [address] EXAMINATION: MRA Neck EXAMINATION: 1. MRA Neck With and Without Intravenous Contrast, 3D time of flight with2-D and 3-D MIP reconstructions. 2. MRA Head With and Without Intravenous Contrast, 3-D time of flighttechnique with 2-D and 3-D MIP reconstruction images. Following the noncontrast images, 14 mL Dotarem was administeredintravenously for the postcontrast MRA neck and MRA head exams. INDICATION: TIA, feeling off balance, history of old lacunar infarcts. COMPARISON: CT head without contrast 12/27/2023. MRA NECK FINDINGS: No hemodynamically significant stenosis or aneurysm isseen in the imaged right or left common or cervical internal carotidarteries, or in the imaged bilateral cervical and included intracranialvertebral arteries. The left vertebral artery is dominant. MRA HEAD FINDINGS: Mild tapering of the intracranial right vertebralartery distal to the origin of the right posterior inferior cerebellarartery, a developmental variant. 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 origin of the rightposterior cerebral artery from the supraclinoid right internal carotidartery with developmental hypoplasia of the right P1 segment of thebasilar tip, also developmental variant. There may be a tiny infundibulumversus tiny 2.5 mm aneurysm at the junction of the anterior communicatingartery with the distal A1 segment of left anterior cerebral artery.Intracranial carotid arteries, major segments of bilateral anterior andmiddle cerebral arteries, and the anterior communicating arteries arepatent without significant stenosis or aneurysm. Intracranial vertebraland basilar arteries, and bilateral superior cerebellar and posteriorcerebral arteries are patent without significant stenosis or aneurysm.The left posterior communicating artery is not visualized on this exam. IMPRESSION: 1. No hemodynamically significant stenosis or aneurysm in the right orleft common or cervical internal carotid arteries or in the intracranialvertebral arteries. 2. 2.5 mm infundibulum versus aneurysm near the junction of the anteriorcommunicating artery with the A1 segment of left anterior cerebral artery.No hemodynamically significant stenosis and no other aneurysm in themajor arteries of the [place]. 3. 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 4. Mild tapering of the intracranial right vertebral artery distal to theorigin of the right posterior inferior cerebellar artery, a developmentalvariant. Referred By: HERMAN BARAJAS Interpreted By: Flavia Olson MD, 08/13/2024 2:17 AM us Herman Barajas MD MRI Final Res ult * MRI THOR SPINE WWO CON (06/23/2023 10:46 AM FACE AND FILL PACKER) Anatomical Region Laterality Modality Spine Magnetic Resonan ce 06/23/2023 7:10 PM [employer] AND FILL P[employer]ER Impressions 06/23/2023 7:17 PM FACE AND FILL PACKER IMPRESSION: 1. Normal appearance of the spinal cord. 2. Mild multilevel cervical spondylosis. 3. Minimal thoracic spondylosis. 4. Incidental severe atrophy of the right infraspinatus muscle Referred By: HERMAN BARAJAS Interpreted By: aDrren Iniguez MD, 06/23/2023 7:10 PM Narrative 06/23/2023 7:17 PM [employer] F[employer] P[employer]ER EXAMINATION: MRI CERV SPINE WWO CON, MRI [...] MD - 06/23/2023 EXAMINATION: MRI CERV SPINE WWO CON, MRI THOR SPINE WWO CON, :10 PM TECHNIQUE: Multiplanar multisequence magnetic resonance images of thecervical and thoracic spine were obtained before and after theadministration of 14 mL of Dotarem injected to the right antecubital fossaIV, without evidence of adverse reaction. HISTORY: Back pain, difficulty walking COMPARISON: MRI cervical spine on 03/31/2022, MRI thoracic [id number]/03/2022. FINDINGS: MRI CERVICAL SPINE: The cervical vertebral [...] 176 <200 MG/DL 02/05/2022 10:56 AM CDT [facility] TRIGLYCERIDES 170(H) <150 MG/DL 02/05/2022 10:56 AM CDT [facility] HDL 87 >40.0 MG/DL 02/05/2022 10:56 AM CDT [facility] LDL (CALCULATED) 55 <100 MG/DL 02/05/2022 10:56 AM CDT [facility] NON HDL CHOLESTEROL 89 <130 MG/DL 02/05/2022 10:56 AM CDT [facility] CHOL/HDL RATIO 2.0 0.0 - 4.5 02/05/2022 10:56 AM CDT [facility] VLDL CALCULATION 34 5 - 55 MG/DL 02/05/2022 10:56 AM CDT [facility] LIPID INTERPRETATION 02/05/2022 10:56 AM T [facility] Comment: [facility] CONCENSUS REPORT RECOMMENDATIONS: ADULT CHILD LOW RISK: CHOLESTEROL <200 <170 TRIGLYCERIDE <150 --- HDL >=60 --- LDL <100 <110 BORDERLINE: CHOLESTEROL 200-239 170-199 TRIGLYCERIDE 150-199 --- HDL 40-59 --- LDL 100-159 110-129 HIGH RISK: CHOLESTEROL >=240 >=200 TRIGLYCERIDE >=200 --- HDL <40 --- LDL >=160 >=130 02/05/2022 9:50 AM CDT Daren See MD,PHD LABORATORY Final Re sult [facility] [address] [place] [address], from Last 3 Months or Most Recently Relevant to Health Maintenance Insurance MEDICARE [facility] Advance Directives * Full Code (Latest Code Status on File) Date Activated Date Inactivated Comments 12/28/2023 12:53 AM 01/01/2024 5:16 PM * Full Code Date Activated Date Inactivated Comments 02/06/2022 1:44 PM 02/06/2022 6:46 PM Care Teams Title Examiner Relationship Specialty Start Date End Date Cooper Suazo MD PCP - General FAMILY PRACTICE 10/17/21 Matias Betancur MD [address] [place] [address] Surgeon NEUROLOGICAL SURGERY 06/20/22
--- OUTSIDE RECORDS SUMMARY | 2024-08-31 12:38 | XMS_ITS | Encounter Summary ---
Author Organization [facility] Address [address] [place] [address] Care Team Providers Care Vocal Teacher Name Role Phone Cooper Suazo MD Primary Care Provider [phone]- [phone] Encounter Details Date Type Department Care Team (Late st Contact Info) Description 08/27/2018 Lab Requisition [facility] DermPath Lab [address] [place] [address] [place] [address] Social History Tobacco Use Types Packs/Day Years Used Date Smoking Tobacco: Never Assessed Comments Unknown Sex and Gender Information Value Date Recorded Sex Assigned at Not on file Legal Sex Female 5:19 PM CRITICAL CARE PHYSICIAN ASSISTANT Gender Identity Not on file Sexual Orientation Not on file documented as of this encounter Plan of Treatment Not on file documented as of this encounter Procedures Procedure Name Priority Date/Time Associated Diagnosis Comments DERMATOPATHOLOGY Routine 08/26/2018 12:0 0 AM CDT documented in this encounter Results * DERMATOPATHOLOGY (08/26/2018 12:00 AM CDT) Case Report Dermatopathology Report Case: [id number] Authorizing Provider: Ian Hall MD Collected: 08/26/2018 [...] specimen consists of a shave biopsy measuring 56a22l8 mm. Jar 0. Specimen B: Received is one formalin filled container labeled with the patient's name and designated left lower back. The specimen consists of a shave biopsy measuring 08c19r8 mm. Jar 0. 12:51 PM CDT DERMATOPATHOLOGY [...] purposes. Billing Codes Specimen Charges Stain Charges 47161 74101 1 1 12:51 PM CDT DERMATOPATHOLOGY LABORATORY Embedded Images 12:51 PM CDT DERMATOPATHOLOGY LABORATORY Pathology/Cytology TISSUE SPECIMEN FROM SKIN / Unknown 08/26/2018 08/27/2018 1:37 PM CDT Miscellaneous samples (specimen) TISSUE SPECIMEN FROM SKIN / Unknown 08/26/2018 08/27/2018 1:37 PM CDT us Ian Hall MD LAB - PATHOLOGY/CYTOLOGY ORD ERABLES Final Result DERMATOPATHOLOGY LABORATORY [facility] - Department of Dermatology [address] [place] [address], 5th Floor Lab [address] [phone] documented in this encounter Visit Diagnoses Not on filedocumented in this encounter Care Teams Vocal Teacher Relationship Specialty Start Date End Date Cooper Suazo MD [facility] [place] [phone] PCP - General 11/09/08 documented as of this encounter
--- OUTSIDE RECORDS SUMMARY | 2024-08-31 12:38 | XMS_ITS | Patient Health Record ---
Author Organization [facility] Address [address] [place] [address] Care Team Providers Care Drilling Engineering Manager Name Role Phone Cooper Suazo MD Primary Care Provider Zandra SotoClaug Unavailable [phone] Allergies Allergen (clinical drug ingredient) Drug/Non Drug [...] JOSÉ C take 1 daily *Reorder from [employer] for eRx and Interaction Alerts* Active traZODone [...] oral route once oral 1 *Reorder from [employer] for eRx and Interaction Alerts* Active cetirizine take 1 by oral route once oral 1 *Reorder from [employer] for eRx and Interaction Alerts* Active Problems Problem Type SNOMED Code ICD Code Onset Dates Problem Status W/U Status Risk Notes Problem 99807654 Other chronic pain (G89.29) Active confirmed Problem 042310625 Rheumatoid arthritis without rheumatoid factor, multiple sites (M06.09) Active confirmed Problem History of malignant neoplasm of skin (063902321) History of skin cancer (Z85.828) Active confirmed Vital Signs Heart Rate 66 /min 06/15/2024 Temperature 98.0 degrees Fahrenheit 06/15/2024 Height-cm 167.64 cm 06/15/2024 Blood pressure diastolic 70 mm Hg 06/15/2024 Oximetry 97 % 06/15/2024 Weight-kg 72.02 kg 06/15/2024 Height 66 in 06/15/2024 Blood pressure systolic 112 mm Hg 06/15/2024 Weight 158.8 lbs 06/15/2024 BMI 25.63 kg/m2 06/15/2024 Encounters Encounter Location Date Provider Diagnosis [facility] [address] [place] [address] 11/26/2023 Annabel Charles Rheumatoid arthritis without rheumatoid factor, multiple sites M06.09 ; History of skin cancer Z85.828 ; High risk medication use Z79.899 and Lumbar back pain M54.50 [facility] [address] [place] [address] 02/12/2024 Annabel Soto Rheumatoid arthritis without rheumatoid factor, multiple sites M06.09 ; History of skin cancer Z85.828 ; High risk medication use Z79.899 and Lumbar back pain M54.50 [facility] [address] [place] [address] 03/19/2024 Annabel Du Rheumatoid arthritis without rheumatoid factor, multiple sites M06.09 ; History of skin cancer Z85.828 ; High risk medication use Z79.899 ; Lumbar back pain M54.50 ; Pain, joint, knee, right M25.561 and Pain, joint, knee, left M25.562 [facility] [address] [place] [address] 06/15/2024 Annabel Soto Rheumatoid arthritis without rheumatoid factor, multiple sites M06.09 ; History of skin cancer Z85.828 ; High risk medication use Z79.899 ; Lumbar back pain M54.50 ; Pain, joint, knee, right M25.561 and Pain, joint, knee, left M25.562 [facility] [address] [place] [address] 10/23/2023 Annabel Soto [facility] [address] [place] [address] 02/26/2024 Annabel Soto [facility] [address] [place] [address] 03/22/2024 Annabel Soto Assessments Encounter Date Diagnosis (ICD Code) Assessment Notes Treatment Notes Treatment Clinical Notes Section Notes 11/26/2023 Rheumatoid arthritis without rheumatoid factor, multiple [...] Soto, 09/14 11:45:00 AM, [address] [facility] [address], [place], [address], Insurance Providers Payer Name Payer Address Payer Phone Subscriber Number Group Number Insured Name Patient Relationship to Insured Coverage Start Date Coverage End Date Medicare [address] [address] [place] [phone] [id number] Liudmila Foley Self - patient is the insured [facility] [address] [place] [address] [phone] [id number] PLAN G Liudmila Foley Self - patient is the insured [employer] [facility] [address] [address] [place] [address] [id number] Og Liudmila Self - patient is the insured Medical (General) History Medical History History ICD Code Colitis; Fibromyalgia; Hyperlipidemia; Hypertension; Skin Cancer; Tremor; Vitamin D deficiency; Surgical History Surgery Date(Month/Year) Augmentation of both breasts with reduct ion of both areolae; 2019-07-05 rotator cuff repair; 2019-07-05 Hysterectomy; 2019-07-05 left hip fracture and surgery
--- OUTSIDE RECORDS SUMMARY | 2024-08-31 12:38 | XMS_ITS ---
Author Organization [facility]uel Address [address] [place] [address] Care Team Providers Care Sizing Machine And Drier Operator Name Role Phone Gabriele HUIZAR, Cooper Primary Care Provider Zandra hanson Annabel Sandra Unavailable [phone] Allergies Allergen (clinical drug ingredient) Drug/Non Drug Allergy documented on EMR Reaction Allergy Type Onset Date Status ciprofloxacin Cipro Unknown Drug Allergy 07/05/2019 Ac tive erythromycin Erythromycin Unknown Drug Allergy 07/05/2019 Active REASON FOR VISIT yd,f/u,cc, 3 month f/u, RA Medications Medication SIG (Take, Route, Frequency, Duration) Notes Start Date End Date Status JOSÉ C take 1 daily *Reorder from [facility] for eRx and Interaction Alerts* Active Gabapentin [...] oral route once oral 1 *Reorder from [facility] for eRx and Interaction Alerts* Active Alive Once Daily Women 50 Plus 800-100 mcg take 1 tablet by oral route once oral 1 *Reorder from [facility] for eRx and Interaction Alerts* Active metFORMIN [...] 03/19/2024 Encounters Encounter Location Date Provider Diagnosis [facility] [address] [facility] [address] [place] [address] 03/19/2024 Annabel Sandra Rheumatoid arthritis without rheumatoid [...] Name:Annabel [place], 09/14 11:45:00 AM, [address] [facility] [address], [place], [address], Procedure Notes * Category Sub-Category Detail Notes Injections Triamcinolone acetate: Indicatio n(s):pain, , Dose:40mg, , Location:knee Progress Notes * Mitchell WALLERaDOB:1955 (68 yo F)Acc No.[id number]:03/19/2024 Progress Notes Patient: Liudmila COLEMAN Provider: Feli SANDRA MD :1955 A ge:68 Y S ex:Female Date:03/19/2024 Address:[address] [place], [place] [address] Pcp:Cooper Suazo MD Subjective: * Chief Complaints: [...] both breasts with reduction of both areolae; [id number] cuff repair; [id number]; 2019-07-05 * Hospitalization/Major Diagno stic Procedure: * [...] 1 , Notes to Pharmacist: *Reorder from [facility] for eRx and Interaction Alerts*cetirizine take 1 by oral route once oral 1 , Notes to Pharmacist: *Reorder from [facility] for eRx and Interaction Alerts*FLUoxetine HCl 20 [...] daily , Notes to Pharmacist: *Reorder from [facility] for eRx and Interaction Alerts*traZODone HCl 100 [...] 1 , Notes to Pharmacist: *Reorder from [facility] for eRx and Interaction Alerts*Taking cetirizine take 1 by oral route once oral 1 , Notes to Pharmacist: *Reorder from [facility] for eRx and Interaction Alerts*Taking FLUoxetine HCl [...] daily , Notes to Pharmacist: *Reorder from [facility] for eRx and Interaction Alerts*Taking traZODone HCl [...] complications. * Procedure Codes: 2 0610 DRAIN/INJECT, JOINT/[id number] DRAIN/INJECT, JOINT/[id number] INJ TRIAMCINOLONE ACETONIDE 10 MG, Units: 8.00 * Follow Up: 3 Months * Billing Information: * Visit Code: 40763 Office Visit, Est Pt., Level 4. Modifiers: 25 * Procedure Codes: 38613 DRAIN/INJECT, JOINT/BURSA. 29603 DRAIN/INJECT, JOINT/BURSA. J3301 INJ TRIAMCINOLONE ACETONIDE 10 MG. Units: 8.00. * ESS EXPERT Sign off status: Completed true * Provider: [...]
--- OUTSIDE RECORDS SUMMARY | 2024-08-31 12:38 | XMS_ITS | Encounter Summary ---
Author Organization [facility] Address [address] [place] [address] Care Team Providers Care Finance Broker Name Role Phone Cooper Suazo MD Primary Care Provider [phone]- [phone] Encounter Details Date Type Department Care Team (Late st Contact Info) Description 11/20/2021 Lab Requisition [facility] DermPath Lab [address] [place], [place] [address] Radha Knutson MD [address] [facility] [address] [place] [address] Social History Tobacco Use Types Packs/Day Years Used Date Smoking Tobacco: Never Assessed Comments Unknown Sex and Gender Information Value Date Recorded Sex Assigned at Not on file Legal Sex Female 5:19 PM 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 Gender Identity Not on file Sexual Orientation Not on file documented as of this encounter Plan of Treatment Not on file documented as of this encounter Procedures Procedure Name Priority Date/Time Associated Diagnosis Comments DERMATOPATHOLOGY Routine 11/19/2021 12:0 0 AM CDT documented in this encounter Results * DERMATOPATHOLOGY (11/19/2021 12:00 AM CDT) Case Report Dermatopathology Report Case: [id number] Authorizing Provider: Radha Knutson MD Collected: 11/19/2021 12:00 AM Ordering Location: [facility] Care Derm[facility] Lab Received: 11/20/2021 01:19 PM Pathologist: Miri Pandya MD Specimen: Skin, left mid rios 1:52 PM CDT DERMATOPATHOLOGY LABORATORY Final Diagnosis [...] of a non-oriented ellipse of skin measuring [id number]. There is a central lesion present measuring [...] characteristic determined by the Dermatopathology Laboratory at [facility], directed by Dr. Tayla Chakraborty. These tests need not be, and therefore are not, approved by the [place] Food and Drug Administration. The tests are used for clinical purposes. Billing Codes Specimen Charges Stain Charges 52690 1 2 1:52 PM CDT DERMATOPATHOLOGY LABORATORY Embedded Images 2 1:52 PM CDT DERMATOPATHOLOGY LABORATORY Pathology/Cytolog y TISSUE SPECIMEN FROM SKIN / Unknown 11/19/2021 11/20/2021 1:19 PM CDT Radha Knutson MD LAB - PATHOLOGY/CYTOLOGY OR DERABLES Final Result DERMATOPATHOLOGY LABORATORY [facility] - Department of Dermatology [address], [address] [phone] documented in this encounter Visit Diagnoses Not on filedocumented in this encounter Care Teams Finance Broker Relationship Specialty Start Date End Date Cooper Suazo MD [address] [place] [phone] PCP - General 11/09/08 documented as of this encounter
== END 2024-08-31 10:54 | disposition home or self-care (01) ==
PROVIDERS: PCP Family Medicine; Visit Provider Family Medicine
DX: R92.8 Other abnormal and inconclusive findings on diagnostic imaging of breast (principal); N63.20 Unspecified lump in the left breast, unspecified quadrant
CPT/HCPCS: 76642; 77061; 77065; G0279